=== PATIENT | female | born 1950 | race Caucasian/White ===

== ENCOUNTER 2021-05-04 14:16 | Outpatient (REF) | payer OTHER, SELFPAY | END 2021-05-04 14:17 | disposition home or self-care (01) | LOC: HO.HMGCLDS 14:16 | PROVIDERS: PCP Internal Medicine; Visit Provider Internal Medicine | DX: Z20.822 Contact with and (suspected) exposure to COVID-19 (principal) | CPT/HCPCS: U0003; U0005 ==

== ENCOUNTER 2021-08-04 10:24 | Outpatient (REF) | payer OTHER, SELFPAY ==
[2021-08-04 14:33] LABS: Alanine Aminotransferase 17 U/L (0-31); Albumin Level 4.4 g/dL (3.5-5.0); Alkaline Phosphatase 57 U/L (39-117); Anion Gap 14 (12-20); Aspartate Amino Transferase 18 U/L (5-31); Bilirubin Total 0.3 mg/dL (0.0-1.0); Blood Urea Nitrogen 12 mg/dL (9-16); Calcium 9.6 mg/dL (8.4-10.2); Carbon Dioxide 25 mmol/L (22-29); Chloride 100 mmol/L (96-108); Estimated Glomerular Filt Rate > 60; Glucose Fasting 78 mg/dL (60-99); Potassium 4.8 mmol/L (3.3-5.1); Sodium 134 mmol/L (135-145); Total Protein 7.4 g/dL (6.5-8.0)
== END 2021-08-04 10:25 | disposition home or self-care (01) ==
LOC: HO.HMGCLDS 10:24
PROVIDERS: PCP Internal Medicine; Visit Provider Internal Medicine
DX: Z00.00 Encounter for general adult medical examination without abnormal findings (principal); E78.5 Hyperlipidemia, unspecified; I10 Essential (primary) hypertension; E87.1 Hypo-osmolality and hyponatremia
CPT/HCPCS: 36415; 80048; 80053

== ENCOUNTER 2023-05-01 13:36 | Outpatient (AMB) | payer OTHER, SELFPAY ==
--- NOTE | 2023-05-01 13:39 | A.OFFPC_ITS ---
Vital Signs 05/01/23 13:40 Height 5 ft 3 in Weight 136 lb BMI 24.1 BP 134/64 Blood Pressure Location Lt brachial Position Sitting Pulse 74 Pulse Source Pulse Oximeter Pulse Oximetry (%) 98 Oxygen Delivery Method Room Air Intake Visit Reasons: Hospital follow up Intake Note: Pt is here today for Hospital follow up visit. Allergies rosuvastatin [From Crestor] Allergy (Verified 05/01/23 13:41) joint pain, pain in legs and arms pravastatin Adverse Reaction (Intermediate, Verified 05/01/23 13:41) elbow pain Medication List - Last Reconciled 05/01/23 by Trudy Espinal MD amlodipine-olmesartan 10-40 mg TAKE 1 TABLET BY MOUTH EVERY DAY Cymbalta (duloxetine) 20 mg PO DAILY NS hydralazine 10 mg PO BID metoprolol succinate ER TAKE 1 TABLET BY MOUTH DAILY Tobacco use date assessed: 05/01/23 Dental Screening Dental Screen Date: 05/01/23 Did you have a dental visit in the last 12 months?: Yes Did you have a dental problem in the last 6 months where you did not have access to dental care?: No Was dental information given to patient?: Patient has dentist HPI Hospital follow up HPI Details Pt presents for f/u hospitalization at [facility] for hyponatremia with sodium level of 126 and difficulty with balance. Brain MR/CT were negative. Patient has been on fluid restriction for the last few years for chronic hypon atremia but has been drinking more fluids lately because of the hot weather. Hypertension is controlled on current medications. Patient has been taking Cymbalta for chronic anxiety and neck pain due to cervical radiculopathy. [facility] Medical History (Updated 05/01/23 @ 14:45 by Trudy Espinal MD) Cervical radiculopathy Depression with anxiety History of mammogram HTN (hypertension) Hyperlipidemia Hyponatremia Normal breast exam Surgical History H/O colonoscopy No pertinent past surgical history Family History Father No problems noted. Mother HTN (hypertension) Social History Housing: House Alcohol intake: current Alcohol intake frequency: a few times a week Patient Tobacco Use Status: Never used Tobacco e-Cigarette/Vaping Use: Never Used Current occupational status: employed Cognitive needs: No Hearing needs: No Vision needs: Yes Questionnaire Thrive Questionnaire Date Thrive assessed: 11/07/22 SAPPHIRE-7 AMB Questionnaire SAPPHIRE-7 Date SAPPHIRE - 7 assessed: 11/07/22 Source: Developed by Drs. Nilson Burdick, Brianna Long, Mickey Cee and colleagues, with an educational seth from [employer]. Review of Systems Const All systems reviewed & are unremarkable except as noted in HPI and below Reports no additional complaints Eyes Reports no additional complaints ENT Reports no additional complaints Card Reports no additional complaints Resp Reports no additional complaints GI Reports no additional complaints Reports no additional complaints Physical exam (Primary Care) Vital Signs: Last Vital Signs Pulse 74 05/01/23 13:40 BP 134/64 05/01/23 13:40 Pulse Ox 98 05/01/23 13:40 Oxygen Delivery Method Room Air 05/01/23 13:40 BMI result Body Mass Index 24.1 Tobacco/Smoking Status: Tobacco use Status Tobacco use date assessed 05/01/23 05/01/23 13:44 Patient Tobacco Use Status Never used Tobacco 05/01/23 13:44 e-Cigarette/Vaping Use Never Used 05/01/23 13:44 Thrive Assessment: Date of Thrive Assessment Date Thrive assessed 11/07/22 05/01/23 13:44 Const General: no acute distress HENMT Ears: hearing grossly normal bilaterally Face and sinus: Yes normal facial exam Eyes General: appearance normal, both eyes and all related structures Neck Neck: Yes no lymphadenopathy and Yes supple Resp Effort & Inspection: normal respiratory effort Auscultation: clear to auscultation bilaterally Cardio Rhythm: regular rhythm Heart sounds: S1 normal heart sound present and S2 normal heart sound present GI Inspection: Yes normal to inspection Palpation (GI): Soft to palpation Auscultation: normal bowel sounds Assessment and Plan Assessment & Plan (1) Hyponatremia: Comment: Chronic SIADH Code(s): E87.1 - Hypo-osmolality and hyponatremia Plan: Fluid restriction to 48 oz of fluids a day discussed with the patient. Sodium level will be rechecked in 1 month. Patient will try to taper down Cymbalta (2) HTN (hypertension): Code(s): I10 - Essential (primary) hypertension Plan: Continue current medications (3) Nodule of larynx: Comment: on CT scan Radha 04/17 Code(s): J38.7 - Other diseases of larynx Plan: Referred to ENT to evaluate Orders: Orders Basic Metabolic Panel 1 Month E87.1 - Hypo-osmolality and hyponatremia, I10 - Essential (primary) hypertension Basic Metabolic Panel 2 Months E87.1 - Hypo-osmolality and hyponatremia, I10 - Essential (primary) hypertension Referrals Ear/Nose/Throat Referral J38.7 - Other diseases of larynx Medications: Changed From hydralazine 20 mg (2 x 10 mg) PO BID 360 tabs 3RF I10 - Essential (primary) hypertension To hydralazine 10 mg PO BID I10 - Essential (primary) hypertension Coding Level of Care Code Est Pt Level 4 (40980) Diagnoses Hyponatremia E87.1 HTN (hypertension) I10 Nodule of larynx J38.7
[2023-05-01 13:40] VITALS: BP 134/64; PULSE 74; O2SAT 98; BMI 24.1
== END 2023-05-01 14:46 | disposition home or self-care (01) ==
PROVIDERS: PCP Internal Medicine; Visit Provider Internal Medicine
DX: E87.1 Hypo-osmolality and hyponatremia (principal); I10 Essential (primary) hypertension; J38.7 Other diseases of larynx
CPT/HCPCS: 99214

== ENCOUNTER 2023-06-04 12:34 | Outpatient (AMB) | payer MEDICARE, SELFPAY ==
[2023-06-04 12:39] VITALS: BP 128/66; PULSE 68; O2SAT 100; BMI 24.1
--- NOTE | 2023-06-04 12:39 | MHC.PC.OV ---
Vital Signs 06/04/23 12:39 Height 5 ft 3 in Weight 136 lb BMI 24.1 BP 128/66 Blood Pressure Location Lt brachial Position Sitting Pulse 68 Pulse Source Pulse Oximeter Pulse Oximetry (%) 100 Oxygen Delivery Method Room Air Intake Visit Reasons: discuss medical issues Intake Note: Pt is here today for a follow up visit. Allergies rosuvastatin [From Crestor] Allergy (Verified 05/01/23 13:41) joint pain, pain in legs and arms pravastatin Adverse Reaction (Intermediate, Verified 05/01/23 13:41) elbow pain Medication List - Last Reconciled 06/04/23 by Trudy Espinal MD amlodipine-olmesartan 10-40 mg TAKE 1 TABLET BY MOUTH EVERY DAY Cymbalta (duloxetine) 20 mg PO DAILY NS hydralazine 10 mg PO BID metoprolol succinate ER TAKE 1 TABLET BY MOUTH DAILY Tobacco use date assessed: 05/01/23 HPI discuss medical issues HPI Details Patient presents for the follow-up of hypertension stable on current medications. She has been tapering down Cymbalta. Patient has been followed fluid restriction for [facility] Medical History (Updated 06/04/23 @ 13:12 by Trudy Espinal MD) Normal breast exam Hyponatremia History of mammogram Cervical radiculopathy Depression with anxiety Hyperlipidemia HTN (hypertension) Surgical History H/O colonoscopy No pertinent past surgical history Family History Father No problems noted. Mother HTN (hypertension) Social History Housing: House Alcohol intake: current Alcohol intake frequency: a few times a week Patient Tobacco Use Status: Never used Tobacco e-Cigarette/Vaping Use: Never Used Current occupational status: employed Cognitive needs: No Hearing needs: No Vision needs: Yes Questionnaire Thrive Questionnaire Date Thrive assessed: 11/07/22 SAPPHIRE-7 AMB Questionnaire SAPPHIRE-7 Date SAPPHIRE - 7 assessed: 11/07/22 Source: Developed by Drs. Nilson Burdick, Brianna Long, Mickey Cee and colleagues, with an educational seth from [employer]. Review of Systems Const All systems reviewed & are unremarkable except as noted in HPI and below Reports no additional complaints Eyes Reports no additional complaints ENT Reports no additional complaints Card Reports no additional complaints Resp Reports no additional complaints GI Reports no additional complaints Reports no additional complaints Physical exam (Primary Care) Vital Signs: Last Vital Signs Pulse 68 06/04/23 12:39 BP 128/66 06/04/23 12:39 Pulse Ox 100 06/04/23 12:39 Oxygen Delivery Method Room Air 06/04/23 12:39 BMI result Body Mass Index 24.1 Tobacco/Smoking Status: Tobacco use Status Tobacco use date assessed 05/01/23 06/04/23 12:40 Patient Tobacco Use Status Never used Tobacco 06/04/23 12:40 e-Cigarette/Vaping Use Never Used 06/04/23 12:40 Thrive Assessment: Date of Thrive Assessment Date Thrive assessed 11/07/22 06/04/23 12:40 Const General: no acute distress HENMT Face and sinus: Yes normal facial exam Resp Effort & Inspection: normal respiratory effort Auscultation: clear to auscultation bilaterally Cardio Rhythm: regular rhythm Heart sounds: S1 normal heart sound present and S2 normal heart sound present GI Inspection: Yes normal to inspection Assessment and Plan Assessment & Plan (1) Postmenopausal: Code(s): Z78.0 - Asymptomatic menopausal state Plan: Check DEXA continue vitamin-D supplement (2) Hyperlipidemia: Comment: intolerant to Pravastatin, Crestor, body aches Code(s): E78.5 - Hyperlipidemia, unspecified Plan: Continue low-cholesterol diet (3) HTN (hypertension): Code(s): I10 - Essential (primary) hypertension Plan: Continue current medications (4) Hyponatremia: Comment: Chronic SIADH Code(s): E87.1 - Hypo-osmolality and hyponatremia Plan: Continue fluid restriction, monitor sodium level monthly for the next 3 months. Patient's tapering down Cymbalta Orders: Orders Basic Metabolic Panel 1 Month E78.5 - Hyperlipidemia, unspecified, E87.1 - Hypo-osmolality and hyponatremia, I10 - Essential (primary) hypertension XR DEXA axial skeleton Today Z78.0 - Asymptomatic menopausal state Comprehensive [place]. Panel Fast 3 Months E78.5 - Hyperlipidemia, unspecified, E87.1 - Hypo-osmolality and hyponatremia, I10 - Essential (primary) hypertension Complete Blood Count Auto Diff 3 Months E78.5 - Hyperlipidemia, unspecified, E87.1 - Hypo-osmolality and hyponatremia, I10 - Essential (primary) hypertension Lipid Panel 3 Months E78.5 - Hyperlipidemia, unspecified, E87.1 - Hypo-osmolality and hyponatremia, I10 - Essential (primary) hypertension Basic Metabolic Panel 2 Months E87.1 - Hypo-osmolality and hyponatremia Coding Level of Care Code Est Pt Level 4 (98792) Diagnoses Postmenopausal Z78.0 Hyperlipidemia E78.5 HTN (hypertension) I10 Hyponatremia E87.1
== END 2023-06-04 13:34 | disposition home or self-care (01) ==
PROVIDERS: PCP Internal Medicine; Visit Provider Internal Medicine
DX: Z78.0 Asymptomatic menopausal state (principal); E78.5 Hyperlipidemia, unspecified; I10 Essential (primary) hypertension; E87.1 Hypo-osmolality and hyponatremia
CPT/HCPCS: 99214

== ENCOUNTER 2023-07-23 13:46 | Outpatient (REF) | payer MEDICARE, SELFPAY ==
--- NOTE | ~2023-07-23 | MM_ITS ---
EXAMINATION: BONE DENSITOMETRY CLINICAL INDICATION: Asymptomatic menopausal state. COMPARISON: This is the patient's baseline examination. TECHNIQUE: Using a [employer] Dog DXA System (software version: 13.1) manufactured by [employer], dual-energy x-ray absorptiometry was performed of the lumbar spine and left hip. The images are of good technical quality. Summary results are attached. FINDINGS: AP SPINE L1-L4: BMD 1.020 g/cm2, Z-score 0.5, T-score -1.3, osteopenia. LEFT FEMUR, NECK: BMD 0.925 g/cm2, Z-score 1.1, T-score -0.8, normal. LEFT FEMUR, TOTAL: BMD 1.002 g/cm2, Z-score 1.7, T-score 0.0, normal. IDENTIFIED RISK FACTORS: Menopause. Right oophorectomy. HISTORY OF FRACTURE: None listed. MEDICATIONS: Calcium supplement and/or multivitamin. Vitamin D. MM/XR DEXA axial skeleton IMPRESSION: 1. DIAGNOSIS: Osteopenia based on the lowest T-score value of -1.3 in the lumbar spine applying World Health Organization criteria. 2. 10-YEAR FRACTURE RISK PREDICTION, FRAX: Major osteoporotic fracture (clinical spine, forearm, hip or shoulder) 9.0%. Hip fracture 1.2%. 3. Treatment Recommendations: NOF guidelines recommend consideration for treatment in postmenopausal women and men age 50 and older presenting with the following: -A hip or vertebral (clinical or morphometric) fracture. -T-score less than or equal to -2.5 at the femoral neck or spine after appropriate evaluation to exclude secondary causes. -Low bone mass at the hip or spine and a 10-year fracture probability by FRAX of greater than or equal to 3% for hip fracture or greater than or equal to 20% for major osteoporotic fracture based on the [place] adapted WHO algorithm. 4. Other Recommendations: All treatment decisions require clinical judgment and consideration of individual patient factors, including patient preferences, comorbidities, previous drug use, risk factors not captured in the FRAX model (e.g. frailty, falls, vitamin D deficiency, increased bone turnover, interval significant decline in bone density) and possible under or overestimation of fracture risk by FRAX. Additional medical evaluation for secondary cause of low bone mineral density may be appropriate. FUTURE SCAN RECOMMENDATION: People with diagnosed cases of osteoporosis or at high risk for fracture should have regular bone mineral density tests. For patients eligible for Medicare, routine testing is allowed once every 2 years. The testing frequency can be increased to one year for patients who have rapidly progressing disease, those who are receiving or discontinuing medical therapy to restore bone mass, or have additional risk factors.
== END 2023-07-23 13:47 | disposition home or self-care (01) ==
LOC: HO.MAMMO 13:46
PROVIDERS: PCP Internal Medicine; Visit Provider Internal Medicine
DX: Z13.820 Encounter for screening for osteoporosis (principal); Z78.0 Asymptomatic menopausal state
CPT/HCPCS: 77080

== ENCOUNTER 2023-10-24 12:40 | Outpatient (AMB) | payer MEDICARE, SELFPAY ==
[2023-10-24 13:18] VITALS: BP 128/70; PULSE 68; O2SAT 97; BMI 24.1
--- NOTE | 2023-10-24 13:18 | MHC.PC.OV ---
Vital Signs 10/24/23 13:18 Height 5 ft 3 in Weight 136 lb BMI 24.1 BP 128/70 Blood Pressure Location Lt brachial Position Sitting Pulse 68 Pulse Source Pulse Oximeter Pulse Oximetry (%) 97 Oxygen Delivery Method Room Air Intake Visit Reasons: Labs Follow Up Intake Note: Pt is here today for a follow up visit on labs. Allergies rosuvastatin [From Crestor] Allergy (Verified 10/24/23 13:26) joint pain, pain in legs and arms pravastatin Adverse Reaction (Intermediate, Verified 10/24/23 13:26) elbow pain duloxetine Adverse Reaction (Verified 10/24/23 13:26) stomach upset nausea Medication List - Last Reconciled 10/24/23 by Trudy Espinal MD amlodipine-olmesartan 10-40 mg TAKE 1 TABLET BY MOUTH EVERY DAY Cymbalta (duloxetine) 20 mg PO DAILY NS hydralazine 10 mg PO BID metoprolol succinate ER TAKE 1 TABLET BY MOUTH DAILY Tobacco use date assessed: 10/24/23 Fall risk assessment: No Falls in past year Last assessed Fall Risk: 10/24/23 Dental Screening Dental Screen Date: 10/24/23 Did you have a dental visit in the last 12 months?: Yes Did you have a dental problem in the last 6 months where you did not have access to dental care?: No Was dental information given to patient?: Patient has dentist HPI Labs Follow Up HPI Details Patient presents for the follow-up on hypertension and chronic anxiety stable on current medications. Patient has been following a fluid restriction for chronic hyponatremia with stable sodium level for the last 6 months. Patient is going to [facility] November. [facility] Medical History (Updated 10/24/23 @ 13:59 by Trudy Espinal MD) Depression with anxiety Normal breast exam Hyponatremia History of mammogram Cervical radiculopathy Hyperlipidemia HTN (hypertension) Surgical History H/O colonoscopy No pertinent past surgical history Family History Father No problems noted. Mother HTN (hypertension) Social History Housing: House Alcohol intake: current Alcohol intake frequency: a few times a week Patient Tobacco Use Status: Never used Tobacco e-Cigarette/Vaping Use: Never Used Current occupational status: employed Cognitive needs: No Hearing needs: No Vision needs: Yes Questionnaire PHQ-9 Over the last 2 weeks, how often have you been bothered by any of the following problems? 1. Little interest or pleasure in doing things: not at all 2. Feeling down, depressed, or hopeless: not at all 3. Trouble falling or staying asleep, or sleeping too much: not at all 4. Feeling tired or having little energy: not at all 5. Poor appetite or overeating: not at all 6. Feeling bad about yourself - or that you are a failure or have let yourself or your family down: not at all 7. Trouble concentrating on things, such as reading the newspaper or watching television: not at all 8. Moving or speaking so slowly that other people could have noticed. Or the opposite - being so fidgety or restless that you have been moving around a lot more than usual: not at all 9. Thoughts that you would be better off or of hurting yourself in some way: not at all Total score: 0 Depression Screening Interpretation: Negative Depression Screening Done: Yes Source: Developed by Drs. Nilson Burdick, Brianna Long, Mickey Cee and colleagues, with an educational seth from [employer]. Thrive Questionnaire Date Thrive assessed: 10/24/23 I am a: Patient What is your living situation today?: I have a steady place to live Within the past 12 months, did the food you bought not last and you didn't have the money to get more?: Never true Within the past 12 months, did you worry whether your food would run out before you got money to buy more?: Never true Do you have trouble paying for medicines?: No Do you have trouble getting transportation to medical appointments?: No Do you have trouble paying your heating and electricity bill?: No Do you have trouble taking care of your child, family member or friend?: No Do you have trouble with day-to-day activities such as bathing, preparing meals, shopping, managing finances, etc.?: No Are you currently unemployed and looking for a job?: No Are you interested in more education?: No Please select the resources that you would like help with: None Currently or been in a relationship where the following occur: no concerns reported THRIVE Score: 0 AUDIT C Alcohol Use Questionnaire (AUDIT-C) 1. How often do you have a drink containing alcohol?: 2-3 times a week 2. How many drinks containing alcohol do you have on a typical day when you are drinking?: 1 or 2 3. How often do you have six or more drinks on one occasion?: Never Total Score: 3 SAPPHIRE-7 AMB Questionnaire SAPPHIRE-7 Date SAPPHIRE - 7 assessed: 10/24/23 Feeling nervous, anxious, or on edge: 1 = Several days Not being able to stop or control worryin = Several days Worrying too much about different things: 1 = Several days Trouble relaxin = Several days Being so restless that it is hard to sit still: 0 = Not at all Becoming easily annoyed or irritable: 0 = Not at all Feeling afraid as if something awful might happen: 1 = Several days Total SAPPHIRE-7 score (0-4 normal; 5-9 mild; 10-14 moderate; 15-21 severe): 5 Source: Developed by Drs. Nilson Burdick, Brianna Long, Mickey Cee and colleagues, with an educational seth from [employer]. Review of Systems Const All systems reviewed & are unremarkable except as noted in HPI and below Reports no additional complaints Eyes Reports no additional complaints ENT Reports no additional complaints Card Reports no additional complaints Resp Reports no additional complaints GI Reports no additional complaints Reports no additional complaints Physical exam (Primary Care) Vital Signs: Last Vital Signs Pulse 68 10/24/23 13:18 BP 128/70 10/24/23 13:18 Pulse Ox 97 10/24/23 13:18 Oxygen Delivery Method Room Air 10/24/23 13:18 BMI result Body Mass Index 24.1 Tobacco/Smoking Status: Tobacco use Status Tobacco use date assessed 10/24/23 10/24/23 13:27 Patient Tobacco Use Status Never used Tobacco 10/24/23 13:27 e-Cigarette/Vaping Use Never Used 10/24/23 13:18 PHQ-9: PHQ-9 Score PHQ-9: Total score 0 10/24/23 13:29 Depression Screening Interpretation: Negative Thrive Assessment: Date of Thrive Assessment Date Thrive assessed 10/24/23 10/24/23 13:29 Currently or been in a relationship where the following occur: no concerns reported Const General: no acute distress HENMT Head: Yes normal to inspection Ears: hearing grossly normal bilaterally Neck Neck: Yes no lymphadenopathy and Yes supple Resp Effort & Inspection: normal respiratory effort Auscultation: clear to auscultation bilaterally Cardio Rhythm: regular rhythm Heart sounds: S1 normal heart sound present and S2 normal heart sound present GI Inspection: Yes normal to inspection Palpation (GI): Soft to palpation Percussion: Yes normal to percussion Auscultation: normal bowel sounds Assessment and Plan Assessment & Plan (1) Annual physical exam: Code(s): Z00.00 - Encounter for general adult medical examination without abnormal findings (2) Hyperlipidemia: Comment: intolerant to Pravastatin, Crestor, body aches Code(s): E78.5 - Hyperlipidemia, unspecified Plan: CONTINUE LOW-CHOLESTEROL DIET (3) HTN (hypertension): Code(s): I10 - Essential (primary) hypertension Plan: Continue current medications (4) Hyponatremia: Comment: Chronic SIADH Code(s): E87.1 - Hypo-osmolality and hyponatremia Plan: Continue fluid restriction and recheck sodium level in 3 and 6 months (5) Depression with anxiety: Code(s): F41.8 - Other specified anxiety disorders Plan: Continue Cymbalta follow-up in 6 months (6) Osteopenia: Comment: DEXA 09/18 Code(s): M85.80 - Other specified disorders of bone density and structure, unspecified site Plan: Taking vitamin-D supplement and weight-bearing exercises discussed with the patient Orders: Orders Basic Metabolic Panel 3 Months E78.5 - Hyperlipidemia, unspecified, E87.1 - Hypo-osmolality and hyponatremia, I10 - Essential (primary) hypertension, Z00.00 - Encounter for general adult medical examination without abnormal findings Comprehensive [place]. Panel Fast 6 Months E78.5 - Hyperlipidemia, unspecified, E87.1 - Hypo-osmolality and hyponatremia, I10 - Essential (primary) hypertension, Z00.00 - Encounter for general adult medical examination without abnormal findings Vitamin D 25-OH Total 6 Months E78.5 - Hyperlipidemia, unspecified, E87.1 - Hypo-osmolality and hyponatremia, I10 - Essential (primary) hypertension, Z00.00 - Encounter for general adult medical examination without abnormal findings Lipid Panel 6 Months E78.5 - Hyperlipidemia, unspecified, E87.1 - Hypo-osmolality and hyponatremia, I10 - Essential (primary) hypertension, Z00.00 - Encounter for general adult medical examination without abnormal findings Coding Level of Care Code Est Pt Level 4 (16675) Diagnoses Annual physical exam Z00.00 Hyperlipidemia E78.5 HTN (hypertension) I10 Hyponatremia E87.1 Depression with anxiety F41.8 Osteopenia M85.80
== END 2023-10-24 13:45 | disposition home or self-care (01) ==
PROVIDERS: PCP Internal Medicine; Visit Provider Internal Medicine
DX: E78.5 Hyperlipidemia, unspecified (principal); I10 Essential (primary) hypertension; E87.1 Hypo-osmolality and hyponatremia; F41.8 Other specified anxiety disorders; M85.80 Other specified disorders of bone density and structure, unspecified site
CPT/HCPCS: 99214

== ENCOUNTER 2024-03-30 11:10 | Outpatient (AMB) | payer MEDICARE, SELFPAY ==
[2024-03-30 11:11] VITALS: BP 125/78; PULSE 67; O2SAT 97; BMI 24.4
--- NOTE | 2024-03-30 11:11 | A.OFFPC_ITS ---
Vital Signs 03/30/24 11:11 03/30/24 12:45 Height 5 ft 3 in Weight 138 lb BMI 24.4 BP 125/78 Blood Pressure Location Lt brachial Position Sitting Pulse 67 Pulse Source Pulse Oximeter Pulse Oximetry (%) 97 Oxygen Delivery Method Room Air Comment Provoider will take bp Intake Visit Reasons: 6M Labs F/U Intake Note: Patient is here today for her 6 month follow up . Allergies rosuvastatin [From Crestor] Allergy (Verified 03/30/24 11:11) joint pain, pain in legs and arms pravastatin Adverse Reaction (Intermediate, Verified 03/30/24 11:11) elbow pain duloxetine Adverse Reaction (Verified 03/30/24 11:11) stomach upset nausea Medication List - Last Reconciled 03/30/24 by Trudy Espinal MD amlodipine-olmesartan 10-40 mg TAKE 1 TABLET BY MOUTH EVERY DAY Cymbalta (duloxetine) 20 mg PO DAILY NS hydralazine 20 mg (2 x 10 mg) PO BID metoprolol succinate ER TAKE 1 TABLET BY MOUTH DAILY Tobacco use date assessed: 03/30/24 Fall risk assessment: No Falls in past year Last assessed Fall Risk: 03/30/24 Dental Screening Dental Screen Date: 03/30/24 Did you have a dental visit in the last 12 months?: Yes Did you have a dental problem in the last 6 months where you did not have access to dental care?: No Was dental information given to patient?: Patient has dentist HPI 6M Labs F/U HPI Details Pt presents for HTN stable on meds. Chronic anxiety stable on Cymbalta [facility] Medical History Depression with anxiety Normal breast exam Hyponatremia History of mammogram Cervical radiculopathy Hyperlipidemia HTN (hypertension) Surgical History H/O colonoscopy No pertinent past surgical history Family History Father No problems noted. Mother HTN (hypertension) Social History Housing: House Alcohol intake: current Alcohol intake frequency: a few times a week Patient Tobacco Use Status: Never used Tobacco e-Cigarette/Vaping Use: Never Used service: No Current occupational status: employed Cognitive needs: No Hearing needs: No Vision needs: Yes Questionnaire Thrive Questionnaire Date Thrive assessed: 03/30/24 I am a: Patient What is your living situation today?: I have a steady place to live Within the past 12 months, did the food you bought not last and you didn't have the money to get more?: Never true Within the past 12 months, did you worry whether your food would run out before you got money to buy more?: Never true Do you have trouble paying for medicines?: No Do you have trouble getting transportation to medical appointments?: No Do you have trouble paying your heating and electricity bill?: No Do you have trouble with day-to-day activities such as bathing, preparing meals, shopping, managing finances, etc.?: No Are you currently unemployed and looking for a job?: No Are you interested in more education?: No Currently or been in a relationship where the following occur: No concerns reported THRIVE Score: 0 AUDIT C Alcohol Use Questionnaire (AUDIT-C) 1. How often do you have a drink containing alcohol?: 2-3 times a week 2. How many drinks containing alcohol do you have on a typical day when you are drinking?: 1 or 2 3. How often do you have six or more drinks on one occasion?: Never Total Score: 3 Score Reviewed/Action Taken: Yes SAPPHIRE-7 AMB Questionnaire SAPPHIRE-7 Date SAPPHIRE - 7 assessed: 10/24/23 Source: Developed by Drs. Nilson Burdick, Brianna Long, Mickey Cee and colleagues, with an educational seth from [employer]. Review of Systems Const All systems reviewed & are unremarkable except as noted in HPI and below Eyes Reports no additional complaints ENT Reports no additional complaints Card Reports no additional complaints Resp Reports no additional complaints GI Reports no additional complaints Physical exam (Primary Care) Vital Signs: Last Vital Signs Pulse 67 03/30/24 11:11 Pulse Ox 97 03/30/24 11:11 Oxygen Delivery Method Room Air 03/30/24 11:11 BMI result Body Mass Index 24.4 Tobacco/Smoking Status: Tobacco use Status Tobacco use date assessed 03/30/24 03/30/24 11:12 Patient Tobacco Use Status Never used Tobacco 03/30/24 11:12 e-Cigarette/Vaping Use Never Used 03/30/24 11:12 Thrive Assessment: Date of Thrive Assessment Date Thrive assessed 03/30/24 03/30/24 11:12 Currently or been in a relationship where the following occur: No concerns reported Const General: no acute distress HENMT Face and sinus: Yes normal facial exam Eyes General: appearance normal, both eyes and all related structures Resp Effort & Inspection: normal respiratory effort Auscultation: clear to auscultation bilaterally Cardio Rhythm: regular rhythm Heart sounds: S1 normal heart sound present and S2 normal heart sound present GI Inspection: Yes normal to inspection Palpation (GI): Soft to palpation Percussion: Yes normal to percussion Assessment and Plan Assessment & Plan (1) HTN (hypertension): Code(s): I10 - Essential (primary) hypertension Plan: Continue current medications (2) Hyperlipidemia: Comment: intolerant to Pravastatin, Crestor, body aches Code(s): E78.5 - Hyperlipidemia, unspecified Plan: Continue low-cholesterol diet (3) Hyponatremia: Comment: 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, on water restriction Code(s): E87.1 - Hypo-osmolality and hyponatremia Plan: Check basic metabolic panel serum and urine osmolality continue fluid restriction return in 6 months with a fasting labs Orders: Orders Complete Blood Count Auto Diff 6 Months E78.5 - Hyperlipidemia, unspecified, E87.1 - Hypo-osmolality and hyponatremia, I10 - Essential (primary) hypertension TSH reflex Free T4 6 Months E78.5 - Hyperlipidemia, unspecified, E87.1 - Hypo-osmolality and hyponatremia, I10 - Essential (primary) hypertension Osmolality Urine Today E87.1 - Hypo-osmolality and hyponatremia Sodium Urine Random Today E87.1 - Hypo-osmolality and hyponatremia TSH reflex Free T4 Today E87.1 - Hypo-osmolality and hyponatremia Comprehensive [place]. Panel Fast 6 Months E78.5 - Hyperlipidemia, unspecified, E87.1 - Hypo-osmolality and hyponatremia, I10 - Essential (primary) hypertension Lipid Panel 6 Months E78.5 - Hyperlipidemia, unspecified, E87.1 - Hypo- osmolality and hyponatremia, I10 - Essential (primary) hypertension Vitamin D 25-OH Total 6 Months E78.5 - Hyperlipidemia, unspecified, E87.1 - Hyp o-osmolality and hyponatremia, I10 - Essential (primary) hypertension Basic Metabolic Panel Today E87.1 - Hypo-osmolality and hyponatremia Osmolality, Serum Today E87.1 - Hypo-osmolality and hyponatremia Coding Level of Care Code Est Pt Level 4 (19341) Diagnoses HTN (hypertension) I10 Hyperlipidemia E78.5 Hyponatremia E87.1
--- OUTSIDE RECORDS SUMMARY | 2024-03-30 11:11 | XMS_ITS | Continuity of Care Document ---
Author Organization [facility] Address [address] [facility] [place] [address]- Care Team Providers Care Wildland Fire Operations Specialist Name Role Phone Trudy Espinal MD Primary Care Physician Encounter 02/05/20 - 02/12/20 [facility] [address], [facility] [address] [place] [address]- [phone] Attending Physician: Trudy Espinal MD Admitting Physician: Trudy Espinal MD Referring Physician: Trudy Espinal MD Allergies, Adverse Reactions, Alerts Substance Reaction Severity Status NKA Active Medications Cymbalta 30 mg oral enteric coated capsule 1 capsule = 30 mg, By Mouth, Daily, 0 Refills, Maintenance, 08/08/15 2:37:12 Start Date: 08/08/15 Status: Ordered Fish Oil oral capsule 1, tablet, By Mouth, Daily, Refills 0, Tot. Refills 0, 11/15/08 13:35:27 Start Date: 11/15/08 Status: Ordered Lotrel 10 mg-40 mg oral capsule 1 capsule, By Mouth, Daily, # 30 capsule, 0 Refills, Maintenance, 08/08/15 2:36:23, Capsule Start Date: 08/08/15 Status: Ordered metoprolol 50 mg oral tablet, extended release 1 tablet = 50 mg, By Mouth, Daily, # 30 tablet, 0 Refills, Maintenance, 08/09/15 8:45:38, XL Tablet Start Date: 08/09/15 Stop Date: 09/08/15 Status: Ordered multivitamin Therapeutic Multiple Vitamins oral tablet 1, tablet, By Mouth, Daily, Refills 0, Tot. Refills 0, 11/15/08 13:35:09 Start Date: 11/15/08 Status: Ordered simvastatin 10 mg oral tablet 1 tablet = 10 mg, By Mouth, Daily at bedtime, # 30 tablet, 0 Refills, Maintenance, 08/08/15 2:36:51, Tablet Start Date: 08/08/15 Status: Ordered
--- OUTSIDE RECORDS SUMMARY | 2024-03-30 11:11 | XMS_ITS | Continuity of Care Document ---
Author Organization [facility] Address [address] [facility] [place] [address]- Care Team Providers Care Dish Washer Name Role Phone Trudy Espinal MD Primary Care Physician Encounter 02/27/23 - 03/06/23 [facility] [address], [facility] [address] [place] [address]- Attending Physician: Trudy Espinal MD Admitting Physician: Trudy Espinal MD Referring Physician: Trudy Espinal MD Allergies, Adverse Reactions, Alerts No Known Allergies Medications Cymbalta 30 mg oral enteric coated [...] 2:36:51, Tablet Start Date: 08/08/15 Status: Ordered Results Radiology Reports * Exam Date Time Procedure Performing Provider Status 02/27/23 11:22 AM MM Digital Mammo Screening Ynes Diez; Yash (Verified) Notes: (MM Digital Mammo Screening) Reason For Exam: Z12.31 ROUTINE SCREENING RESULT: MM Digital Mammo Screening PROCEDURE: MM Digital Mammo Screening INDICATION: Screening. No known palpable abnormalities. COMPARISON: 02/24/2022 TECHNIQUE: Full-field digital CC and MLO views of both breasts were obtained. In addition, 3D tomosynthesis images of both breasts were acquired. Computer-aided detection (CAD) was utilized in the interpretation of this study. DENSITY: The breast tissue contains scattered areas of fibroglandular density. FINDINGS: On the right cc view there is a 3 mm round area of asymmetric markings seen anteriorly and just lateral to the midline. There is no correlate on the oblique view. Because this was not clearly present on old films further evaluation will be done. There are scattered benign appearing calcifications bilaterally. IMPRESSION: A 3 mm round area of asymmetric markings seen anteriorly and laterally on the right cc view. I would evaluate this as follows: I would obtain a 3-D spot compression view in the CC position. If the abnormality persists I would do a 3-D lateral view and an ultrasound. RECOMMENDATION: Diagnostic 3D tomosynthesis of the right breast with scheduled ultrasound BI-RADS: 0 (Incomplete - Need Additional Imaging Evaluation. Lay letter mailed to patient WSN: [id number] Ordering Physician: Trudy Espinal Dictated By: Jaden Chandler MD Dictated Date/Time: 02/27/23 1:21 pm Reviewed By: Jaden Chandler MD Signed By: Jaden Chandler MD Signed Date/Time: 02/27/23 1:21 pm Transcribed By: JORGITO Electorate Officer Date/Time: 02/27/23 1:12 pm Birads: Patient Care team information Care Team Personnel Name: Trudy Espinal MD Position: S Physician - Primary Care Member Role: PCP Address: Address: [address] [place] [address]- Care Team Related Persons Name: LISHA CIFUENTES Address: home [address] [place] [address] Name: CATHERINE CIFUENTES Address: home [address] [place] [address] Name: SILVESTRE GODWIN Address: [place] [address]
--- OUTSIDE RECORDS SUMMARY | 2024-03-30 11:11 | XMS_ITS | Continuity of Care Document ---
Author Organization [facility] ter Address [address] [place] [address]- Care Team Providers Care Metal Wire Coating Operator Name Role Phone Trudy Espinal MD Primary Care Physician [phone] Encounter [facility] Date(s): 03/21/22 - 03/21/[address] [address] Attending Physician: Trudy Espinal MD Allergies, Adverse Reactions, [...]
--- OUTSIDE RECORDS SUMMARY | 2024-03-30 11:11 | XMS_ITS | Continuity of Care Document ---
Author Organization [facility] Address [address] [facility], [address] [place] [address]- Care Team Providers Care Shear Tender Name Role Phone Trudy Espinal MD Primary Care Physician Encounter 02/07/21 - 02/14/21 [facility] [address], [address] [place] [address]- Attending Physician: Trudy Espinal MD Admitting Physician: [...]
--- OUTSIDE RECORDS SUMMARY | 2024-03-30 11:11 | XMS_ITS | Continuity of Care Document ---
Author Organization [facility] Address [address] [facility], [address] [place] [address]- Care Team Providers Care Line Manager Name Role Phone Trudy Espinal MD Primary Care Physician Encounter 02/24/22 - 03/03/22 [facility] [address] [facility], [address] [place] [address]- Attending Physician: Trudy Espinal MD Admitting Physician: [...]
== END 2024-03-30 12:33 | disposition home or self-care (01) ==
LOC: HO.HMGC 11:10
PROVIDERS: PCP Internal Medicine; Visit Provider Internal Medicine
DX: I10 Essential (primary) hypertension (principal); E78.5 Hyperlipidemia, unspecified; E87.1 Hypo-osmolality and hyponatremia
CPT/HCPCS: 99214

== ENCOUNTER 2024-03-30 12:02 | Outpatient (REF) | payer MEDICARE, SELFPAY ==
[2024-03-30 13:58] LABS: Anion Gap 12 (12-20); Blood Urea Nitrogen 11 mg/dL (9-16); Calcium 9.8 mg/dL (8.4-10.2); Carbon Dioxide 26 mmol/L (22-29); Chloride 95 mmol/L (96-108); Estimated Glomerular Filt Rate > 60; Glucose Random 95 mg/dL (60-115); Potassium 4.3 mmol/L (3.3-5.1); Sodium 129 mmol/L (135-145)
[2024-03-30 14:01] LABS: Osmolality Urine 274 mosm/kg (373-1093); Osmolality, Serum 241 mosm/kg (281-305)
[2024-03-30 14:04] LABS: TSH reflex Free T4 1.56 uIU/mL (0.32-4.0)
== END 2024-03-30 12:03 | disposition home or self-care (01) ==
LOC: HO.HMGCLDS 12:02
PROVIDERS: PCP Internal Medicine; Visit Provider Internal Medicine
DX: E87.1 Hypo-osmolality and hyponatremia (principal)
CPT/HCPCS: 36415; 80048; 83930; 83935; 84300; 84443

== ENCOUNTER 2024-05-07 14:37 | Outpatient (REF) | payer MEDICARE, SELFPAY ==
[2024-05-07 16:37] LABS: Anion Gap 14 (12-20); Blood Urea Nitrogen 10 mg/dL (9-16); Carbon Dioxide 24 mmol/L (22-29); Chloride 98 mmol/L (96-108); Estimated Glomerular Filt Rate > 60; Glucose Random 99 mg/dL (60-115); Potassium 4.2 mmol/L (3.3-5.1); Sodium 132 mmol/L (135-145)
== END 2024-05-07 14:38 | disposition home or self-care (01) ==
LOC: HO.HMGCLDS 14:37
PROVIDERS: PCP Internal Medicine; Visit Provider Internal Medicine
DX: E87.1 Hypo-osmolality and hyponatremia (principal)
CPT/HCPCS: 36415; 80048

== ENCOUNTER 2024-09-29 12:08 | Outpatient (AMB) | payer MEDICARE, SELFPAY ==
[2024-09-29 12:10] VITALS: BP 128/78; PULSE 75; TEMP 37.2; O2SAT 99; BMI 24.6
--- NOTE | 2024-09-29 12:10 | MHC.PC.OV ---
Vital Signs 09/29/24 12:10 Height 5 ft 3 in Weight 139 lb BMI 24.6 BP 128/78 Blood Pressure Location Lt brachial Position Sitting Pulse 75 Pulse Source Pulse Oximeter Temp 98.9 F Temp Source Oral Pulse Oximetry (%) 99 Oxygen Delivery Method Room Air Intake Visit Reasons: Annual PE Intake Note: Pt is here today for PE. Allergies rosuvastatin [From Crestor] Allergy (Verified 09/29/24 12:11) joint pain, pain in legs and arms pravastatin Adverse Reaction (Intermediate, Verified 09/29/24 12:11) elbow pain duloxetine Adverse Reaction (Verified 09/29/24 12:11) stomach upset nausea Medication List - Last Reconciled 09/29/24 by Trudy Espinal MD amlodipine-olmesartan 10-40 mg TAKE 1 TABLET BY MOUTH EVERY DAY Cymbalta (duloxetine) 20 mg PO DAILY NS hydralazine 20 mg (2 x 10 mg) PO BID metoprolol succinate ER TAKE 1 TABLET BY MOUTH DAILY Tobacco use date assessed: 09/29/24 Fall risk assessment: No Falls in past year Last assessed Fall Risk: 09/29/24 Dental Screening Dental Screen Date: 09/29/24 Did you have a dental visit in the last 12 months?: Yes Did you have a dental problem in the last 6 months where you did not have access to dental care?: No Was dental information given to patient?: Patient has dentist HPI Annual PE HPI Details Pt presents for PE. PFS Medical History Depression with anxiety Normal breast exam Hyponatremia History of mammogram Cervical radiculopathy Hyperlipidemia HTN (hypertension) Surgical History H/O colonoscopy No pertinent past surgical history Family History Father No problems noted. Mother HTN (hypertension) Social History Housing: House Alcohol intake: current Alcohol intake frequency: a few times a week Patient Tobacco Use Status: Never used Tobacco e-Cigarette/Vaping Use: Never Used service: No Current occupational status: employed Cognitive needs: No Hearing needs: No Vision needs: Yes Questionnaire PHQ-9 Over the last 2 weeks, how often have you been bothered by any of the following problems? 1. Little interest or pleasure in doing things: not at all 2. Feeling down, depressed, or hopeless: not at all 3. Trouble falling or staying asleep, or sleeping too much: not at all 4. Feeling tired or having little energy: not at all 5. Poor appetite or overeating: not at all 6. Feeling bad about yourself - or that you are a failure or have let yourself or your family down: not at all 7. Trouble concentrating on things, such as reading the newspaper or watching television: not at all 8. Moving or speaking so slowly that other people could have noticed. Or the opposite - being so fidgety or restless that you have been moving around a lot more than usual: not at all 9. Thoughts that you would be better off or of hurting yourself in some way: not at all Total score: 0 Depression Screening Interpretation: Negative Depression Screening Done: Yes 77874 - PHQ-9 Billing: Yes Source: Developed by Drs. Nilson Burdick, Brianna Long, Mickey Cee and colleagues, with an educational seth from [employer]. Thrive Questionnaire Date Thrive assessed: 09/29/24 I am a: Patient What is your living situation today?: I have a steady place to live Within the past 12 months, did the food you bought not last and you didn't have the money to get more?: Never true Within the past 12 months, did you worry whether your food would run out before you got money to buy more?: Never true Do you have trouble paying for medicines?: No Do you have trouble getting transportation to medical appointments?: No Do you have trouble paying your heating and electricity bill?: No Do you have trouble taking care of your child, family member or friend?: No Do you have trouble with day-to-day activities such as bathing, preparing meals, shopping, managing finances, etc.?: No Are you currently unemployed and looking for a job?: No Are you interested in more education?: No Please select the resources that you would like help with: None THRIVE Score: 0 AUDIT C Alcohol Use Questionnaire (AUDIT-C) 1. How often do you have a drink containing alcohol?: 2-3 times a week 2. How many drinks containing alcohol do you have on a typical day when you are drinking?: 1 or 2 3. How often do you have six or more drinks on one occasion?: Never Total Score: 3 Score Reviewed/Action Taken: Yes SAPPHIRE-7 AMB Questionnaire SAPPHIRE-7 Date SAPPHIRE - 7 assessed: 09/29/24 Feeling nervous, anxious, or on edge: 1 = Several days Not being able to stop or control worryin = Not at all Worrying too much about different things: 1 = Several days Trouble relaxin = Not at all Being so restless that it is hard to sit still: 0 = Not at all Becoming easily annoyed or irritable: 0 = Not at all Feeling afraid as if something awful might happen: 0 = Not at all Total SAPPHIRE-7 score (0-4 normal; 5-9 mild; 10-14 moderate; 15-21 severe): 2 Source: Developed by Drs. Nilson Burdick, Brianna Long, Mickey Cee and colleagues, with an educational seth from [employer]. Review of Systems Const All systems reviewed & are unremarkable except as noted in HPI and below Reports no additional complaints Eyes Reports no additional complaints ENT Reports no additional complaints Card Reports no additional complaints Resp Reports no additional complaints GI Reports no additional complaints Reports no additional complaints Musc Reports no additional complaints Physical exam (Primary Care) Vital Signs: Last Vital Signs Temp 98.9 F 09/29/24 12:10 Pulse 75 09/29/24 12:10 BP 128/78 09/29/24 12:10 Pulse Ox 99 09/29/24 12:10 Oxygen Delivery Method Room Air 09/29/24 12:10 BMI result Body Mass Index 24.6 Tobacco/Smoking Status: Tobacco use Status Tobacco use date assessed 09/29/24 09/29/24 12:25 Patient Tobacco Use Status Never used Tobacco 09/29/24 12:25 e-Cigarette/Vaping Use Never Used 09/29/24 12:20 PHQ-9: PHQ-9 Score PHQ-9: Total score 0 09/29/24 13:06 Depression Screening Interpretation: Negative Thrive Assessment: Date of Thrive Assessment Date Thrive assessed 09/29/24 09/29/24 12:20 Const General: no acute distress HENIA Head: Yes normal to inspection Ears: hearing grossly normal bilaterally General nose exam: Normal external nose present Face and sinus: Yes normal facial exam Throat: Yes posterior oropharynx normal Eyes General: appearance normal, both eyes and all related structures Neck Neck: Yes no lymphadenopathy and Yes supple Resp Effort & Inspection: normal respiratory effort Auscultation: clear to auscultation bilaterally Cardio Rhythm: regular rhythm Heart sounds: S1 normal heart sound present and S2 normal heart sound present GI Inspection: Yes normal to inspection Palpation (GI): Soft to palpation Percussion: Yes normal to percussion Auscultation: normal bowel sounds Coding Level of Care Code Est Pt Prev Care >65y(26970) Diagnoses HTN (hypertension) I10 Hyperlipidemia E78.5 Hyponatremia E87.1 Annual physical exam Z00.00 Additional Codes PHQ-9 - 87017 - PHQ-9 Billing: Yes ([id number]) Assessment & Plan Assessment & Plan (1) HTN (hypertension): Code(s): I10 - Essential (primary) hypertension Category: Medical Plan: Continue current medications (2) Hyperlipidemia: Comment: intolerant to Pravastatin, Crestor, body aches Code(s): E78.5 - Hyperlipidemia, unspecified Category: Medical Plan: Continue low-cholesterol diet (3) Hyponatremia: Comment: 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 She is up-to-date with the mammogram colonoscopy Orders: Orders Complete Blood Count Auto Diff 6 Months E78.5 - Hyperlipidemia, unspecified, E87.1 - Hypo-osmolality and hyponatremia, I10 - Essential (primary) hypertension Lipid Panel 6 Months E78.5 - Hyperlipidemia, unspecified, I10 - Essential (primary) hypertension Basic Metabolic Panel 3 Months E87.1 - Hypo-osmolality and hyponatremia Comprehensive [place]. Panel Fast 6 Months E78.5 - Hyperlipidemia, unspecified, I10 - Essential (primary) hypertension Medications: Changed From Cymbalta (duloxetine) no substitution 20 mg PO DAILY 90 caps 3RF NS To Cymbalta (duloxetine) 20 mg PO DAILY 90 caps 3RF NS Refilled metoprolol succinate ER TAKE 1 TABLET BY MOUTH DAILY 90 tabs 3RF
--- OUTSIDE RECORDS SUMMARY | 2024-09-29 12:54 | XMS_ITS | Data Portability ---
Author Organization [place] - [facility], Allergy Address [address] [address] Care Team Providers Care Oyster Buyer Name Role Phone ABDIAS EDMONDS Primary Care Provider Assessment No assessment recorded. Plan of Treatment Reminders Order Date Submit Date Provider Last Modified By Organization Details Last Modified Time Details Appointments None record ed. Lab None record ed. Referral None record ed. Procedures None record ed. Surgeries None record ed. Imaging None record ed. Medication Orders None record ed. Patient TargetsNo targets recorded. Patient InstructionsNo instructions recorded. Reason for Referral None Reported. Problems Name Problem SNOMED Code Status Onset Date Resolution Date Notes Provider Name and Address Organization Details Recorded Time Sensorine ural hearing loss of bilateral ears 351709993 Active 2019 Sensorine ural hearing loss, bilateral ; Note: Date Diagnosed : 01/28/2020 2:30 PM (H90.3) Not Available [facility] 4 02:48:02 Impacted cerumen in right ear [id number] 66109 Active 2019 Impacted cerumen, right ear; Note: Date Diagnosed : 01/28/2020 3:00 PM (H61.21) Not Available [facility] 4 02:48:01 Cyst of pharynx [id number] Active 2023 MADDI RAMIRES MD [address] [facility], [facility] [address] , [place] - [facility] 4 15:02:21 Problem Notes None recorded. Procedures Surgical History Date Name Laterality Status Provider Name and Address Organization Details Recorded Time 07/22/20 24 Comp Audio with Tymps (23676 & 14469) completed Kim Seth [place] - [facility] 07/22/2024 14:00:58 05/22/20 24 Fiberoptic Laryngoscopy (Comprehensive) completed MADDI RAMIRES MD [address] [place] [address], [place], [address], [place] - [facility] 05/31/2024 15:00:27 Imaging Results None recorded. Procedure Notes None recorded. Medical Equipment None Reported. Allergies No known drug allergies Medications Name Sig Start Date Stop Date Status Note LastModified by Organization Details LastModified Time desonide 0.05 % topical cream APPLY TWICE DAILY TO ECZEMA UP TO 2 WEEKS/MO NTH NEEDED. 05/22 completed Not Available Not Available Not Available hydralazi ne 10 mg tablet TAKE 2 TABLETS BY MOUTH TWICE A DAY active Not Available Not Available No t Available metoprolo l succinate ER 50 mg tablet,ex tended release 24 hr TAKE 1 TABLET BY MOUTH EVERY DAY active Not Available Not Available No t Available meloxicam 7.5 mg tablet TAKE 1 TABLET BY MOUTH EVERY DAY 05/22 completed Not Available Not Available Not Available pravastat in 10 mg tablet 2019 active Medicati on ID: [id number] D uration Value: 90 Brand Name: pravasta tin Send Method: E-Prescr ibed Sub s Allowed: subs OK Speci al Instruct ion: TAKE 1 TABLET BY MOUTH EVERY DAY Medi cationGe nericNam e: pravasta tin Not Available Not Available Not Available fluocinon gary 0.05 % topical cream APPLY SPARINGL Y TO AFFECTED AREA 3 TIMES A DAY 05/22 completed Not Available Not Available Not Available Cymbalta 20 mg capsule,d elayed release TAKE 1 CAPSULE BY MOUTH EVERY DAY active Not Available Not Available No t Available Vitamin D3 active Medicati on ID: [id number] B rand Name: Vitamin D3 Send Method: E-Prescr ibed Sub s Allowed: subs OK Medic ationGen ericName : Vitamin D3 Not Available Not Available Not Available amlodipin e 10 mg-olmesa rtan 40 mg tablet TAKE 1 TABLET BY MOUTH EVERY DAY active Not Available Not Available No t Available Paxlovid 300 mg (150 mg x 2)-100 mg tablets in a dose pack TAKE 2 TABLETS (NIRMATR ALLISON) AND TAKE 1 TABLET (RITONAV IR) BY MOUTH TWICE A DAY FOR 5 DAYS 05/22 completed Not Available Not Available Not Available Vitals Date Recorded Body height Body mass index (BMI) Body weight Provider Name and Address Organization Details Last Updated DateTime 05/22/2024 160.02 cm 23.9 kg/m2 48635.97 g Deann Horvath [place] - [facility] 05/22/2024 13:53:12 Social History None recorded. Functional Status None recorded. Mental Status None recorded. Family History Nothing Reported. Medical History Condition Response Hyperlipidemia Y Hypertension Y Gynecological HistoryNo gynecological history recorded. Obstetrics History GPAL:G 0 P 0 0 0 0 Past Encounters Encounter ID Performer Location Encounter Start Date Encounter Closed Date Diagnosis/Indication Diagnosis SNOMED-CT Code Diagnosis ICD10 Code Diagnosis Note [id number] MADDI RAMIRES MD [facility] [address] [address] 05/22/2024 13:42:58 05/22/2024 14:09:10 Cyst of pharynx [id number] J39.2 No changes in health since her last visit. We reviewed results and her MRI imaging showing small cysts at the tongue base suggestive of mucous retention cyst, small elongated cyst in the central more inferior tongue base which could represent a small thyrogloss al duct cyst, and 6 mm right vallecular cyst. She denies any sore throat, dysphagia, otalgia. Repeat flexible laryngosco py today did not show any change in exam. No worrisome physical exam findings. I do not palpate any mass in her neck.I would recommend repeat laryngosco py for any change in symptoms.Rona johnson scheduled her for audiogram. [id number] Blade BOYKIN [facility] [address] [address] 07/22/2024 13:59:21 07/22/2024 14:03:23 Sensorineural hearing loss of bilateral ears [id number] H90.3 [facility]{{Norm al Normal through 2 kHz Mild* Moderate M oderately- severe Sev ere Profou nd}} {{hearing hearing. s loping to a mild slopi ng to a moderate s loping to moderately severe* sl oping to severe slo ping to profound f lat high frequency low frequency mid frequency cookie bite goins curve}} {{with sen sorineural hearing loss with* cond uctive hearing loss with mixed hearing loss with}} {{excellen t* good fa ir poor no measurable }} word recognitio n.Left ear:{{Norm al* Normal through 2 kHz Mild M oderate Mo derately-s evere Elizabeth re Profoun d}} {{hearing hearing. s loping to a mild slopi ng to a moderate s loping to moderately severe* sl oping to severe slo ping to profound f lat high frequency low frequency mid frequency cookie bite goins curve}} {{with sen sorineural hearing loss with* cond uctive hearing loss with mixed hearing loss with}} {{excellen t* good fa ir poor no measurable }} word recognitio n. Tympanomet ry:Right Ear:{{Type A* Type As Type Ad Type C Type C, shallow & rounded Ty pe B Type B with large volume Cou ld not maintain a hermetic seal}}Left Ear:{{Type A* Type As Type Ad Type C Type C, shallow & rounded Ty pe B Type B with large volume Cou ld not maintain a hermetic seal}} Health Concerns Section Related Observation LastModified by Organization Detai ls LastModified Time None Recorded Concern Status LastModified by Organization Details LastModified Time None Recorded Advance Directives Directive None Recorded Payers Encounter Date Sequence Insurance Name Policy Number Policy Bernard Covered Member ID Bernard Member ID Guarantor Name 05/22/2024 1 [facility] (MEDICARE REPLACEMENT/A DVANTAGE - PPO) [id number] Jennifer Samuel [id number] Jennifer Samuel 07/22/2024 1 [facility] (MEDICARE REPLACEMENT/A DVANTAGE - PPO) [id number] Jennifer Samuel [id number] Jennifer Samuel Notes Date Note Type Note Provider Name and Address Organization Details Recorded Time 05/22/2024 text/html No changes since her last visit. We reviewed results and her imaging showing small cysts at the tongue base suggestive of mucous retention cyst, small elongated cyst in the central more inferior tongue base which could represent a small thyroglossal duct cyst, and 6 mm right vallecular cyst. She denies any sore throat, dysphagia, otalgia. PV: 73-year-old female presents today for evaluation of a throat nodule that was noted incidentally when she was hospitalized for stroke workup forlightheadedness. She denies any dysphagia, sore throat, voice changes, otalgia, heartburn.CT angio showed 8 x 6 x 9 circumscribed nodule in the fat cephalad to the false cord on the left.No distinct lesion was noted in this area. There was some subtle fullness of the false cord. There is also some lymphoid hypertrophy at the base of the tongue.I did recommend repeat imaging with MRI. If there appears to have been growth, would consider exam under anesthesia and biopsy.Cerumen was removed at her request. We can plan on hearing tested the future visit. MADDI RAMIRES MD [address] [place] [address], [place], [address], [facility] - [facility] 05/31/2024 15:05:22 OBGyn Episode No OBEpisode recorded.
--- OUTSIDE RECORDS SUMMARY | 2024-09-29 12:54 | XMS_ITS | Clinical Summary ---
Author Organization [facility] Address [address] [place] [address] Care Team Providers Care Community Center Worker Name Role Phone Unavailable Primary Care Provider Unavailabl e Social History Tobacco Use Types Packs/Day Years Used Date Smoking Tobacco: Never Assessed Sex and Gender Information Value Date Recorded Sex Assigned at Not on file Gender Identity Not on file Sexual Orientation Not on file Plan of Treatment Health Maintenance Due Date Last Done Comments DTaP,Tdap,and Td Vaccines (1 - Tdap) 02/12/1968 Zoster Vaccines (1 of 2) 1999 Pneumococcal Vaccine: 65+ Ye ars (1 of 1 - PCV) 2014 Colorectal Cancer Screening: Colonoscopy 09/19/2023 Depression Screening 09/19/2023 Falls Risk Assessment 09/19/2023 Hepatitis C Screening 09/19/2023 Osteoporosis Screening (Bone Density Screening) 09/19/2023 Social Influencers of Health Screening 09/19/2023 RSV Immunization Patients 60 + Years Old (1 - 1-dose 75+ series) 02/12/2024 COVID-19 Vaccine ( - 2023-2 5 season) 2024 Influenza Vaccine (#1) 2024 HIB Vaccines Aged Out No longer eligi ble based on patient's age to complete this topic HPV Vaccines Aged Out No longer eligi ble based on patient's age to complete this topic Hepatitis A Vaccines Aged Out No long er eligible based on patient's age to complete this topic Hepatitis B Vaccines Aged Out No long er eligible based on patient's age to complete this topic IPV Vaccines Aged Out No longer eligi ble based on patient's age to complete this topic MMR Vaccines Aged Out No longer eligi ble based on patient's age to complete this topic Meningococcal ACWY Vaccine Aged Out N o longer eligible based on patient's age to complete this topic RSV Immunization Patients Un lorrie 20 months Aged Out No longer eligible b ased on patient's age to complete this topic Varicella Vaccines Aged Out No longer eligible based on patient's age to complete this topic
--- OUTSIDE RECORDS SUMMARY | 2024-09-29 12:54 | XMS_ITS | Clinical Summary ---
Author Organization [address] Address [address] [place] [address] Care Team Providers Care Cyber Systems Engineer Name Role Phone Trudy Espinal MD Primary Care Provider [phone] Allergies No known active allergies Medications omega 9-uhb-cbb-fish oil (FISH OIL) 1,000 mg (120 mg-180 mg) capsule Fish Oil Active amlodipine-olme sartan (KARIS) 10-40 mg per tablet 1 tablet Orally Active calcium carbonate (OYSCO-500) 1250 mg (500 mg calcium) tablet 2 (two) times daily. Active CYMBALTA 20 mg capsule 1 capsule (20 mg total). Active hydrALAZINE (APRESOLINE) 10 mg tablet 1 tablet (10 mg total). 04/12/2024 Active metoprolol succinate XL (TOPROL-XL) 50 mg 24 hr tablet 1 tablet (50 mg total). 04/12/2024 Active Family History Relation Name Status Comments Father Mother Social History Tobacco Use Types Packs/Day Years Used Date Smoking Tobacco: Former Cigarettes Smokeless Tobacco: Never Tobacco Cessation:Counseling Given: Not Answered Alcohol Use Standard Drinks/Week Comments Not Currently 1 (1 standard drink = 0.6 oz pur e alcohol) Comments Unknown Sex and Gender Information Value Date Recorded Sex Assigned at Not on file Legal Sex Female 2:34 PM EDT Gender Identity Not on file Sexual Orientation Not on file Last Filed Vital Signs Vital Sign Reading Time Taken Comments Blood Pressure 170/71 04/13/2024 3:23 PM EDT Pulse 67 04/13/2024 3:23 PM EDT Temperature 37.1 ??C (98.8 ??F) 04/13/2024 3:23 PM ED T Respiratory Rate 16 04/13/2024 3:23 PM EDT Oxygen Saturation 97% 04/13/2024 3:23 PM EDT Inhaled Oxygen Concentration - - Weight 61.2 kg (135 lb) 04/13/2024 3:23 PM EDT Height 160 cm (5' 3 ) 04/13/2024 3:23 PM EDT Body Mass Index 23.91 04/13/2024 3:23 PM EDT Plan of Treatment Health Maintenance Due Date Last Done Comments HIV screening 1962 Hepatitis C screening 1967 Tetanus adult (Td q 10,TDAP once) 1969 Lipid disorder screening 1989 Colon cancer screening, Colonoscopy 1994 Diabetes screening 1994 Shingles vaccine (Shingrix) (1 of 2 - Shingrix (RZV) 2 Dose Standard Series) 1999 Osteoporosis screening (bone density) 2014 Pneumo Vaccine 65+ (1 of 1 - PCV) 2014 RSV Discussion (1 - 1-dose 7 5+ series) 02/12/2024 Influenza vaccine 03/26/2024 Covid-19 vaccine series (2023- season) 2024 Breast cancer screening Discontinued Cervical cancer screening Discontinued Meningococcal Vaccine Aged Out No david arya eligible based on patient's age to complete this topic [place] [address] [address] [facility] MGD Care Teams Cyber Systems Engineer Relationship Specialty Start Date End Date Trudy Espinal MD [address] [place] [place] [address] PCP - General Internal Medicine 04/13/24
--- OUTSIDE RECORDS SUMMARY | 2024-09-29 12:54 | XMS_ITS | Clinical Summary ---
Author Organization [facility] Address [address] [place] [address] Care Team Providers Care Newspaper Stuffer Name Role Phone Unavailable Primary Care Provider Unavailabl e Social History Tobacco Use Types Packs/Day Years Used Date Smoking Tobacco: Never Assessed Sex and Gender Information Value Date Recorded Sex Assigned at Not on file Gender Identity Not on file Sexual Orientation Not on file Job Start Date Occupation Industry Not on file Not on file Not on file Plan of Treatment Health Maintenance Due Date Last Done Comments Hepatitis C Screening 1949 COVID-19 Vaccine (#1) 1949 Depression Screening 1961 Preventative Health Evaluation 1967 DTap / Tdap / Td (1 - Tdap) 02/12/1968 Colon Cancer Screening (Colonoscopy) 1994 Shingrix-Zoster Vaccine (1 of 2) 1999 Fall Risk Assessment 2014 Osteoporosis Screening (DEXA Scan) 2014 Pneumococcal Vaccine (1 of 1 - PCV) 2014 RSV Adult > 60+ Yrs or Pregn ant (1 - 1-dose 75+ series) 02/12/2024 Influenza Vaccine (#1) 2024 Hepatitis B Vaccines Aged Out No long er eligible based on patient's age to complete this topic RSV Ped < 20 months Aged Out No longe r eligible based on patient's age to complete this topic
--- OUTSIDE RECORDS SUMMARY | 2024-09-29 12:54 | XMS_ITS | Data Portability ---
Author Organization [place] [facility] Cerv[facility] [place] Address [address] [place] [address] Care Team Providers Care High School Tutor Name Role Phone ABDIAS EDMONDS Primary Care Provider ABDIAS EDMONDS Referring Provider [phone] Assessment Encounter Date Assessment Date Assessment LastModified by Organization Details LastModified Time 04/22/2024 04/22/2024 [facility] Chief Complaint : I have swelling in front of my right knee HPI : Very pleasant 74-year-old woman seen today for evaluation of her right knee. She indicates on 04/09/2024, she was planning on a vacation, packing up when she slipped on a scatter rug falling into her closet landing on all fours but in particular the front of her right knee. Patient states that she got up, got a bit dizzy and nauseous, sat down. Then ultimately, compose herself did well went on her trip. Upon return, the patient noticed that she has some swelling in the front of her right knee. No pain. Despite that she went to an urgent care for evaluation on 04/13/2024, was seen by a physician real estate administrative assistant x-rays were negative for fracture. She was told to ice and elevate. She is seen today indicating that the knee is about the same. Essentially no pain but the swelling has persisted. No limp no external support, no other confounding issues no prior history. REVIEW OF SYSTEMS : Otherwise, she has been in excellent health. PHYSICAL EXAM : Very pleasant youthful appearing woman who walks today without a limp. No trouble getting on exam table. She has an obvious prepatellar collection. No redness or warmth. Soft and fluctuant prepatellar bursal collection. The knee itself was completely benign on exam today. No crepitus no tenderness. Focused Physical Examination : IMAGING/DIAGNOST IC TESTING : Outside x-rays of the right knee show no obvious arthritic changes but some swelling in the prepatellar region. See Discussion Notes Section DIAGNOSIS : Posttraumatic prepatellar bursitis right knee. Procedure : IMPRESSION/PLAN : We discussed a few different options. For now, we will start her on meloxicam 7.5 mg 1 a day, continue ice. She can walk as much as she would like but avoid kneeling on the right knee. Recheck in 3 to 4 weeks and if this persist, the next step would be aspiration and cortisone injection as we discussed today. Any changes have asked that she let me know it was a pleasure seeing her today. Colton Enriquez MD [facility] [place] Not available 04/22/2024 13:44:09 Plan of Treatment Reminders Order Date Submit Date Provider Last Modified By Organization Details Last Modified Time Details Appointments None recorded. Lab None recorded. Referral None recorded. Procedures None recorded. Surgeries None recorded. Imaging None recorded. Medication Orders [facility] 7.5 mg tablet [id number] [address] [place], [address], 13:48:13 Patient TargetsNo targets recorded. Patient InstructionsNo instructions recorded. Reason for Referral None Reported. Problems Name Problem SNOMED Code Status Onset Date Resolution Date Notes Provider Name and Address Organization Details Recorded Time Prepatellar bursitis of right knee 7624014228999 00 Active 2023 Colton Enriquez MD [address], [place], [address] , [place] [facility] 13:40:00 Problem Notes None recorded. Procedures Surgical History Date Name Laterality Status Provider Name and Address Organization Details Recorded Time procedure on ear completed Radha Long [place] [facility] 04/22/2024 13:42:24 Imaging Results None recorded. Procedure Notes None recorded. Medical Equipment None Reported. Allergies No known drug allergies Medications Name Sig Start Date Stop Date Status Note LastModified by Organization Details LastModified Time desonide 0.05 % topical cream APPLY TWICE DAILY TO ECZEMA UP TO 2 WEEKS/Sat NEEDED. 05/13 completed Not Available Not Available Not Available hydralazine 10 mg tablet TAKE 2 TABLETS BY MOUTH TWICE A DAY active Not Available Not Available No t Available metoprolol succinate ER 50 mg tablet,exte nded release 24 hr TAKE 1 TABLET BY MOUTH EVERY DAY active Not Available Not Available No t Available meloxicam 7.5 mg tablet TAKE 1 TABLET BY MOUTH EVERY DAY active Not Available Not Available No t Available fluocinonid e 0.05 % topical cream APPLY SPARINGLY TO AFFECTED AREA 3 TIMES A DAY 05/13 completed Not Available Not Available Not Available neomycin 3.5 mg/g-polymy chandler B 10,000 unit/g-dexa meth 0.1 % eye oint APPLY A SMALL AMOUNT TO THE RIGHT UPPER EYELID MARGIN TWICE DAILY FOR 7-10DAYS 05/13 completed Not Available Not Available Not Available Cymbalta 20 mg capsule,del ayed release TAKE 1 CAPSULE BY MOUTH EVERY DAY active Not Available Not Available No t Available amlodipine 10 mg-olmesart an 40 mg tablet TAKE 1 TABLET BY MOUTH EVERY DAY active Not Available Not Available No t Available Paxlovid 300 mg (150 mg x 2)-100 mg tablets in a dose pack TAKE 2 TABLETS (NIRMATRE LVIR) AND TAKE 1 TABLET (RITONAVI R) BY MOUTH TWICE A DAY FOR 5 DAYS 05/13 completed Not Available Not Available Not Available Vitals Date Recorded Body height Body mass index (BMI) Body weight Provider Name and Address Organization Details Last Updated DateTime 04/22/2024 160.02 cm 24.4 kg/m2 [address]12[address] [place] [facility], 04/22/2024 13:41:16 Date Recorded Body height Body mass index (BMI) Body weight Provider Name and Address Organization Details Last Updated DateTime 05/13/2024 160.02 cm 24.4 kg/m2 15166.[address] [place] [facility] 05/13/2024 11:30:43 Social History Question Answer Notes LastModified by Organizat ion Details LastModified Time Tobacco Smoking Status Never Smoker Radha lees [place] [facility] 04/22/2024 13:41:29 What Is Your Level Of Alcohol Consumption? Heavy [email or web address] Information not available 04/22/2024 How Many Times Per Week Do You Consume Alcohol? 5-7 Times Per Week [email or web address] Information not available 04/22/2024 Do You Use Any Illicit Or Recreational Drugs? No [email or web address] Information not available 04/22/2024 Do You Or Have You Ever Used Any Other Forms Of Tobacco Or Nicotine? No [email or web address] Information not available 04/22/2024 Sex: Unknown Functional Status None recorded. Mental Status None recorded. Family History Relationship Description Onset Age of this Age Resolved Age Notes LastModified by Organization Details LastModified Time Brother Hypertensive disorder [email or web address] Not available 13:42:01 Sister Hypertensive disorder [email or web address] Not available 13:42:01 Mother Hypertensive disorder [email or web address] Not available 13:42:01 Mother Hyperlipidem ia [email or web address] Not available 13:42:08 Father Heart disease [email or web address] Not available 13:42:18 Medical History Condition Response Hypertension Y Gynecological HistoryNo gynecological history recorded. Obstetrics History GPAL:G 0 P 0 0 0 0 Past Encounters Encounter ID Performer Location Encounter Start Date Encounter Closed Date Diagnosis/Indication Diagnosis SNOMED-CT Code Diagnosis ICD10 Code Diagnosis Note [id number] MD TIANNA Lew [address] [place] [address] 04/22/2024 13:08:43 04/22/2024 13:46:05 Pain of right knee joint 3355565192 47372 M25.561 Prepatella r bursitis of right knee 6745168077 27963 M70.41 [id number] MD TIANNA Lew [address] [place] [address] 05/13/2024 11:27:11 05/13/2024 11:38:07 Prepatellar bursitis of right knee 8207866380 84235 M70.41 [facility] Chief Complaint: I am here for checkup on my right knee HPI: Patient returns today now about a month following her right knee injury. She has prepatella r bursitis. When I saw her last time, we decided to try some meloxicam and ice. With, she indicates has been considerab le improvemen t. Still some swelling but is not limiting her in any way. Perhaps some subpatella r discomfort when she is driving her car. No interferen ce with the day-to-day activities . She has been on meloxicam 15 mg a day for 3 weeks. REVIEW OF SYSTEMS: No change PHYSICAL EXAM: Patient walks today without a limp. The prepatella r collection is down by at least 50%. There is some residual swelling, but it is half of what it was. No redness, no tenderness otherwise knee exam was unremarkab le. Focused Physical Examinatio n : IMAGING/DI AGNOSTIC TESTING:Se e Discussion Notes Section DIAGNOSIS: Prepatella r bursitis, right knee, improving. Procedure: IMPRESSION /PLAN: We discussed this. My recommenda tion is that she finish up her meloxicam over the next week. She can also start, at this time, Voltaren gel 3 times a day. Continue icing. She will keep an eye on this. If it continues to resolve, she can be seen back as needed. If it increases, or persists and she would like to have the fluid removed, she knows to give us a call. For now, we agreed to keep an eye on it. Is a pleasure seeing her today. Colton Enriquez, [facility] [phone] I am here for checkup Health Concerns Section Related Observation LastModified by Organization Detai ls LastModified Time None Recorded Concern Status LastModified by Organization Details LastModified Time None Recorded Advance Directives Directive None Recorded Payers Encounter Date Sequence Insurance Name Policy Number Policy Bernard Covered Member ID Bernard Member ID Guarantor Name 04/22/2024 1 [facility] (MEDICARE REPLACEMENT/A DVANTAGE - PPO) [id number] Jennifer Samuel [id number] Jennifer Samuel 05/13/2024 1 [facility] (MEDICARE REPLACEMENT/A DVANTAGE - PPO) [id number] Jennifer Samuel [id number] Jennifer Samuel OBGyn Episode No OBEpisode recorded.
--- OUTSIDE RECORDS SUMMARY | 2024-09-29 12:54 | XMS_ITS ---
Author Name [facility] Organization Unknown History of Medication Use Medication Directions Dispensed Refills Start Date End Date Stat meloxicam 7.5 mg tablet Take 1 tablet every day by oral route. 04/22/2024 active Paxlovid 300 mg (150 mg x 2)-100 mg tablets in a dose pack TAKE 2 TABLETS (NIRMATRELVIR) AND TAKE 1 TABLET (RITONAVIR) BY MOUTH TWICE A DAY FOR 5 DAYS 05/13/2024 active Problems Problem Status Onset Date Problem Type Date of Resoluti on Source Prepatellar bursitis of right knee active 2024-04-22 ProblemAct ENS_AONECT
== END 2024-09-29 13:25 | disposition home or self-care (01) ==
PROVIDERS: PCP Internal Medicine; Visit Provider Internal Medicine
DX: I10 Essential (primary) hypertension (principal); E78.5 Hyperlipidemia, unspecified; E87.1 Hypo-osmolality and hyponatremia; Z00.00 Encounter for general adult medical examination without abnormal findings

== ENCOUNTER → 2024-09-29 12:08 | Outpatient (BNVA) | payer MEDICARE, SELFPAY | PROVIDERS: PCP Internal Medicine; Visit Provider Internal Medicine | DX: Z00.00 Encounter for general adult medical examination without abnormal findings (principal); E87.1 Hypo-osmolality and hyponatremia; E78.5 Hyperlipidemia, unspecified; I10 Essential (primary) hypertension | CPT/HCPCS: 96127; 99397 ==

== ENCOUNTER 2024-12-28 14:29 | Outpatient (REF) | payer MEDICARE, SELFPAY ==
--- OUTSIDE RECORDS SUMMARY | 2024-12-28 16:00 | XMS_ITS | Clinical Summary ---
Author Organization [facility] ity Address [address] [place] [address] Care Team Providers Care Signal Tower Director Name Role Phone Unavailable Primary Care Provider Unavailabl e Social History Tobacco Use Types Packs/Day Years Used Date Smoking Tobacco: Never Assessed Comments Unknown Sex and Gender Information Value Date Recorded Sex Assigned at Not on file Legal Sex Female 8:05 PM EST Gender Identity Not on file Sexual Orientation Not on file Plan of Treatment Health Maintenance Due Date Last Done Comments DTaP,Tdap,and Td Vaccines (1 - Tdap) 02/12/1968 Pneumococcal Vaccine: 50+ Ye ars (1 of 1 - PCV) 1999 Zoster Vaccines (1 of 2) 1999 Colorectal Cancer Screening: Colonoscopy 09/19/2023 Depression Screening 09/19/2023 Falls Risk Assessment 09/19/2023 Hepatitis C Screening 09/19/2023 Osteoporosis Screening (Bone Density Screening) 09/19/2023 Social Influencers of Health Screening 09/19/2023 RSV Immunization Adult Patie nts (1 - 1-dose 75+ series) 02/12/2024 COVID-19 Vaccine ( - 2023-2 5 season) 2024 Influenza Vaccine (Season Ended) 2025 HIB Vaccines Aged Out No longer eligi [...] patient's age to complete this topic Meningococcal B Vaccine Aged Out No l onger eligible based on patient's age to complete this topic RSV Immunization Patients Un lorrie 20 months Aged Out No longer eligible b ased on patient's age to complete this topic Varicella Vaccines Aged Out No longer eligible based on patient's age to complete this topic
--- OUTSIDE RECORDS SUMMARY | 2024-12-28 16:00 | XMS_ITS ---
Author Organization [facility] Address [address] [address] Care Team Providers Care Upholstery Sewer Name Role Phone Trudy Espinal MD Primary Care Provider Briseida Lopez [phone] REASON FOR VISIT Annual (YELLOW FORM DONE) Medications Medication SIG (Take, Route, Frequency, Duration) Notes Start Date End Date Status Multi Vitamin Active Fish Oil Active Cymbalta 20 MG Orally Activ e Clotrimazole-Betamethaso ne 1-0.05 % 1 application Externally Twice a day for 10 days 07/16/2023 Not-Taki ng Clobetasol Propionate 0.05 % 1 application to affected area Externally every night for 2 weeks, then q other night for 2 weeks, then weekly for 90 days 02/27/2023 Active Probiotic - as directed Orally Active Metoprolol-HCTZ ER 50-12.5 MG 1 tablet Orally Active amLODIPine-Olmesartan 10-40 MG 1 tablet Orally Active Vitamin D Active Encounters Encounter Location Date Provider Diagnosis [address] [address] 03/10/2024 Briseida Dillard Plan Of Treatment No Information Progress Notes * SATURNINOGEREEDB:1950 ([age] yo F)Acc No.[id number]:03/10/2024 PROGRESS NOTES Patient:?ALYSSA MATAMOROS Appointment Provider:?Briseida rutledge M.D. :1950???Age:74 Y???Sex:Female D ate:03/10/2024 Address:[facility] [address] [place], [id number] Pcp:Trudy Espinal MD Subjective: * Chief Complaints: * ???1. Annual (YELLOW FORM DO NE). * Medical History:?Essential ( primary) hypertension, Headache, unspecified, Postmenopausal atrophic vaginitis, Lichen sclerosus et atrophicus. * [employer] History:?/ Para?4/3.?Sexual activity?not currently sexually active.?Last Pap Smear:?07/20/19 NIL, NEG HRHPV, 2015, neg.?Mammogram:?02/27/23 < 50% density, 02/24/22 < 50% density, 02/07/21 < 50% density, 02/05/20 < 50% density, 01/2019.?Abnormal Pap Smear:?no history of abnormal pap smears.?History of STD's:?none.?Menarche?10.?Menopause: ?Began at age: ?49 ???Colonoscopy?10/2022 Benign Polyp, 4-5 years ago.?Bone Density:?09/09/18.? * OB History:?Total pregnancies?4.?Total living children?3.?NVD?3.?Miscarriage(s)?1.? * Medications:?Taking Probioti c - Tablet Delayed Release as directed Orally , Taking Metoprolol-HCTZ ER 50-12.5 MG Tablet Extended Release 24 Hour 1 tablet Orally , Taking amLODIPine-Olmesartan 10-40 MG Tablet 1 tablet Orally , Taking Vitamin D , Taking Multi Vitamin , Taking Fish Oil , Taking Cymbalta 20 MG Capsule Delayed Release Particles Orally , Taking Clobetasol Propionate 0.05 % Ointment 1 application to affected area Externally every night for 2 weeks, then q other night for 2 weeks, then weekly , Not-Taking Clotrimazole-Betamethasone 1-0.05 % Cream 1 application Externally Twice a day Objective: * Vitals:? Assessment: Plan: * Treatment: * Images: Billing Information: * Visit Code:? * Procedure Codes:? * Electronic signature of Hugh Dillard MD on 12/28/2024 at 03:59 PM EDT Sign off status: Pending * Appointment Provider:?Briseida Dillard M.D. Date:?03/10/2024 Generated for Lupe bryan/[place]/Екатерина on:?12/28/2024 03:59 PM EDT
--- OUTSIDE RECORDS SUMMARY | 2024-12-28 16:00 | XMS_ITS | Clinical Summary ---
Author Organization [facility] Address [address] [place] [address] Care Team Providers Care Tension Worker Name Role Phone Unavailable Primary Care [...]
--- OUTSIDE RECORDS SUMMARY | 2024-12-28 16:00 | XMS_ITS | Clinical Summary ---
Author Organization [address] Address [address] [place] [address] Care Team Providers Care Kidney Trimmer Name Role Phone Trudy Espinal MD Primary Care Provider [phone] Allergies No known active allergies Medications omega 0-nnq-nim-fish oil (FISH OIL) 1,000 mg (120 mg-180 [...] cancer screening, Colonoscopy 1994 Diabetes screening 1994 Pneumococcal Vaccine (50+ ye ars) (1 of 1 - PCV) 1999 Shingles vaccine (Shingrix) (1 of 2 - Shingrix (RZV) 2 Dose Standard Series) 1999 Osteoporosis screening (bone density) 2014 RSV Immunization (1 - 1-dose 75+ series) 02/12/2024 Covid-19 vaccine series ( - 2023- season) 2024 Influenza vaccine 04/26/2025 Breast cancer screening Discontinued Cervical cancer screening Discontinued Meningococcal Vaccine Aged Out No david arya eligible based on patient's age to complete this topic [place] [address] [place] [address] MGD [facility] MGD Care Teams Kidney Trimmer Relationship Specialty Start Date End Date Trudy Espinal MD [address] [place] [address] PCP - General Internal Medicine 04/13/24
--- OUTSIDE RECORDS SUMMARY | 2024-12-28 16:01 | XMS_ITS ---
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 :1950???Age:74 Y???Sex:Female D ate:03/04/2024 [address] [place] [address] Pcp:Trudy Espinal MD Subjective: * Chief Complaints: * ???1. 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 * Medical History:? Objective: * Vitals:? Assessment: Plan: * Treatment: * Images: Billing Information: * Visit Code:? * Procedure Codes:? * Electronic signature of Hugh Dillard MD on 12/28/2024 at 04:01 PM EDT Sign off status: Pending * Appointment Provider:?Briseida Dillard M.D. Date:?03/04/2024 Generated for Lupe bryan/[place]/eTransmitting on:?12/28/2024 04:01 PM EDT
--- OUTSIDE RECORDS SUMMARY | 2024-12-28 16:01 | XMS_ITS ---
Author Organization [employer] [facility] Address [address] [address] Care Team Providers Care [place] Commissioner Name Role Phone Trudy Espinal MD Primary Care Provider Briseida Lopez [phone] Allergies No Known Allergies REASON FOR VISIT Annual SPA CONCIERGE Physical, Annual SPA CONCIERGE Physical 60-85+ Medications Medication SIG (Take, Route, Frequency, Duration) Notes Start Date End Date Status Fish Oil Active Multi Vitamin Active Clobetasol Propionate 0.05 % 1 application to affected area Externally every night for 2 weeks, then q other night for 2 weeks, then weekly for 90 days 02/27/2023 Active Cymbalta 20 MG Orally Activ e Clotrimazole-Betamethaso ne 1-0.05 % 1 application Externally Twice a day for 10 days 07/16/2023 Not-Taki ng Vitamin D Active amLODIPine-Olmesartan 10-40 MG 1 tablet Orally Active Calcium 500 MG 1 tablet with meals Orally Twice a day Active Metoprolol-HCTZ ER 50-12.5 MG 1 tablet Orally Active Probiotic - as directed Orally Active Social History Tobacco Use: Social History Observation Description Date Details (start date - stop date) Former Smoker NA - NA Tobacco Use/Smoking Question Answer Notes Are you a former smoker Alcohol Screen (Audit-C) Question Answer Notes Did you have a drink contain ing alcohol in the past year? Yes How often did you have a dri nk containing alcohol in the past year? 4 or more times a week (4 points) Points 4 Interpretation Positive Sexual History Question Answer Notes Had sex in the past 12 months (vaginal, oral, or anal)? No Vital Signs Temperature 97.3 degrees Fahrenheit 03/12/20 24 Blood pressure systolic 128 mm Hg 03/12/20 24 Blood pressure diastolic 72 mm Hg 024 Height 63 in 03/12/2024 Weight 132 lbs 03/12/2024 BMI 23.38 kg/m2 03/12/2024 Encounters Encounter Location Date Provider Diagnosis Total [address] [place] [address] 03/12/2024 Briseida Dillard Encounter for screening mammogram for malignant neoplasm of breast Z12.31 ; Encounter for screening for osteoporosis Z13.820 ; Lichen sclerosus et atrophicus L90.0 and Encounter for gynecological examination (general) (routine) without abnormal findings Z01.419 Assessments Encounter Date Diagnosis (ICD Code) Assessment Notes Treatment Notes Treatment Clinical Notes Section Notes 03/12/2024 Encounter for screening mammogram for malignant neoplasm of breast (ICD-10 - Z12.31) REGULAR MAMMOGRAMS AND SBE'S WERE RECOMMENDED. 03/12/2024 Encounter for screening for osteoporosis (ICD-10 - Z13.820) BONE DENSITY WAS ORDERED. 03/12/2024 Lichen sclerosus et atrophicus (ICD-10 - L90.0) DISCUSSED FINDINGS AND CONGRATULATED PAT FOR HER DILIGENCE IN APPLYING THE MEDICATION. APPLY CLOBETASOL OINTMENT TO AFFECTED AREA Q 7 TO 10 DAYS. CHECK VULVA Q 2 MONTHS AND INCREASE OR DECREASE DOSE NEEDED. 03/12/2024 Encounter for gynecological examination (general) (routine) without abnormal findings (ICD-10 - Z01.419) NO MORE PAP TESTS. Plan Of Treatment Treatment Notes Assessment Notes Encounter for screening mamm ogram for malignant neoplasm of breast REGULAR MAMMOGRAMS AND SBE'S WERE RECOMMENDED. Encounter for screening for osteoporosis BONE DENSITY WAS ORDERED. Lichen sclerosus et atrophicus DISCUSSED FINDINGS AND CONGRATULATED PAT FOR HER DILIGENCE IN APPLYING THE MEDICATION. APPLY CLOBETASOL OINTMENT TO AFFECTED AREA Q 7 TO 10 DAYS. CHECK VULVA Q 2 MONTHS AND INCREASE OR DECREASE DOSE NEEDED. Encounter for gynecological examination (general) (routine) without abnormal findings NO MORE PAP TESTS. Pending Test Test Name Order Date MAMMOGRAM, SCREENING 03/12/2024 BONE DENSITY 03/12/2024 MM Digital Mammo Screening 03/12/2024 Next Appt Details Follow Up: 1 Year, Reason: Progress Notes * CHERELLE MATAMOROS:1950 ([age] yo F)Acc No.[id number]:03/12/2024 PROGRESS NOTES Patient:ALYSSA HOLLINGSWORTH Appointment Provider:?Briseida rutledge M.D. :1950???Age:74 Y???Sex:Female D ate:03/12/2024 Address:[address] [place] [address] [id number] Pcp:Trudy Espinal MD Subjective: * Chief Complaints: * ??? Annual SPA CONCIERGE PhysicalAnnua l SPA CONCIERGE Physical 60-85+ * HPI: ???New/Follow-up Patient Consult:? PAT ENTERED MENOPAUSE IN HER 50'S.? SHE IS NOT SEXUALLY ACTIVE. SHE WAS NOTED TO HAVE LICHEN SCLEROSUS IN 2022.? SHE IS APPLYING CLOBETASOL OINTMENT ONCE WEEKLY HER MAINTENANCE DOSE AND IS DOING WELL. SHE UNDERWENT LAPAROSCOPY FOR PAINS AT AGE 17 AND WAS FOUND TO HAVE ENDOMETRIOSIS. HER LAST MAMMOGRAM DONE IN FEBRUARY 2023 SHOWED BREASTS ARE NOT DENSE AND WAS NORMAL. HER LAST PAP TEST IN 2018 WAS NEGATIVE AND HPV NEGATIVE. HER LAST BMD IN 2018 WAS NORMAL. SHE HAD A COLONOSCOPY DONE IN 2022. MODERNA X 3. ???Annual:? Patient presents for annual exam, ages 60-85, postmenopausal. ?General Health Maintenance:?Current breast complaints:?no breast pain, mass, discharge, or skin changes ?Urinary problems:?patient reports no urinary health problems or bowel health problems ?Calcium intake:?takes adequate calcium via diet and supplementation ?Significant SPA CONCIERGE problems:?no significant unix engineer symptoms or problems * ROS:?general:?no?chest pain.?no?palpitations.?no?headache.?no?cough.?no?shortness of breath.?no?fever.?no?unexplained weight loss.?no?nausea/vomiting.?no?change in bowel movements.?no blood in stool.?no?genitourinary complaints.?no?skin complaints.? * Medical History:? 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 * OB History:?Total pregnancies?4.?Total living children?3.?NVD?3.?Miscarriage(s)?1.? * Surgical History:?Endometrio sis 1968Colonoscopy Laparoscopy * Hospitalization/Major Diagno stic Procedure:?3 Vaginal Deliveries * Family History:?Mother: dece ased.?Father: .? * Social History:?Tobacco Use:?Tobacco Use/Smoking?Are you a?former smoker ???Sexual History:?Sexual History?Had sex in the past 12 months (vaginal, oral, or anal)??No ?Details of Sexual History?Are you sexually active??No ???Drugs/Alcohol:?Drugs?Have you used drugs other than those for medical reasons in the past 12 months??No ?Alcohol Screen (Audit-C)?Did you have a drink containing alcohol in the past year??Yes ?How often did you have a drink containing alcohol in the past year??4 or more times a week (4 points) ?Points?4 ?Interpretation?Positive ???Miscellaneous:?Children: yes, 3. ?Exercise: yes, walking, yoga, tennis. ?Home smoke detector use: yes. ?Marital status: . ?Natural support system: yes. 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 ?Sexually active: no. * Medications:?TakingCalcium 5 00 MG Tablet 1 tablet with meals Orally Twice a day Probiotic - Tablet Delayed Release as directed Orally Metoprolol-HCTZ ER 50-12.5 MG Tablet Extended Release 24 Hour 1 tablet Orally amLODIPine-Olmesartan 10-40 MG Tablet 1 tablet Orally Vitamin D Multi Vitamin Fish Oil Cymbalta 20 MG Capsule Delayed Release Particles Orally Clobetasol Propionate 0.05 % Ointment 1 application to affected area Externally every night for 2 weeks, then q other night for 2 weeks, then weekly Taking Calcium 500 MG Tablet 1 tablet with meals Orally Twice a day Taking Probiotic - Tablet Delayed Release as directed Orally Taking Metoprolol- HCTZ ER 50-12.5 MG Tablet Extended Release 24 Hour 1 tablet Orally Taking amLODIPine-Olmesartan 10-40 MG Tablet 1 tablet Orally Taking Vitamin D Taking Multi Vitamin Taking Fish Oil Taking Cymbalta 20 MG Capsule Delayed Release Particles Orally Taking Clobetasol Propionate 0.05 % Ointment 1 application to affected area Externally every night for 2 weeks, then q other night for 2 weeks, then weekly Wve-WvupqdLoacjxnuvfzs-Exlbbefydgfsr 1-0.05 % Cream 1 application Externally Twice a day Medication List reviewed and reconciled with the patientNot-Taking Clotrimazole-Betamethasone 1-0.05 % Cream 1 application Externally Twice a day Medication List reviewed and reconciled with the patient * Allergies:?N.K.D.A.no[Allerg ies Verified] Objective: * Vitals:?Ht: 63 in, Wt: 132 l bs, BMI:23.38Index, BP: 128/72 mm Hg, Temp: 97.3 F. * Examination: ???General Exam: ?CONSTITUTIONAL:?General Appearance:?alert, in no acute distress, normal, well nourished ?NECK/THYROID:?Inspection/Palpation:?normal ?Thyroid:?normal size and shape ?RESPIRATORY:?Auscultation: clear to auscultation bilaterally, Respiratory Effort: normal.?CARDIOVASCULAR:?Auscultation: regular rate and rhythm.?BREAST, Right:?Inspection/Palpation:?no discharge, no masses present, no nipple retraction, no skin changes, no skin dimpling, no tenderness, no lymphadenopathy, no axillary mass, no axillary tenderness ?BREAST, Left:?Inspection/Palpation:?no discharge, no masses present, no nipple retraction, no skin changes, no skin dimpling, no tenderness, no lymphadenopathy, no axillary mass, no axillary tenderness ?GASTROINTESTINAL:?Abdomen:?no masses, nontender, nondistended ?Liver and Spleen:?normal ?Hernias:?no hernias present, no inguinal adenopathy ?MUSCULOSKELETAL:?Inspection/Palpation:?no clubbing, cyanosis, or edema ?SKIN:?Skin:?normal ?NEURO/PSYCH:?Orientation:?time , place, person ?Mood/Affect:?normal?Genitourinary: ?EXTERNAL GENITALIA:?External Genitalia:?WHITE THINNED OUT AREAS HAVE ALMOST COMPLETELY RESOLVED. ?VAGINA:?Vagina:?normal appearance, no abnormal discharge, no lesions ?BLADDER:?Bladder:?no mass, nontender ?URETHRA:?Urethra:?no erythema or lesions present ?CERVIX:?Cervix:?no lesions, nontender ?UTERUS:?Uterus:?nontender, normal contour, normal mobility, normal size ?ADNEXA:?Adnexa:?no masses, no tenderness ?ANUS AND PERINEUM:?Anus/Perineum:?visually normal??? Assessment: * Assessment: 1.?Encounter for screening m ammogram for malignant neoplasm of breast - Z12.31???2.?Encounter for screening for osteoporosis - Z13.820???3.?Lichen sclerosus et atrophicus - L90.0???4.?Encounter for gynecological examination (general) (routine) without abnormal findings - Z01.419 (Primary)??? Plan: * Treatment: 2.?Encounter for screening m ammogram for malignant neoplasm of breast?Imaging: MM Digital Mammo Screening Notes: REGULAR MAMMOGRAMS AND SBE'S WERE RECOMMENDED.?? 3.?Encounter for screening f or osteoporosis?Imaging: BONE DENSITY Notes: BONE DENSITY WAS ORDERED.?? 4.?Lichen sclerosus et atrop hicus? Notes: DISCUSSED FINDINGS AND CONGRATULATED PAT FOR HER DILIGENCE IN APPLYING THE MEDICATION. APPLY CLOBETASOL OINTMENT TO AFFECTED AREA Q 7 TO 10 DAYS. CHECK VULVA Q 2 MONTHS AND INCREASE OR DECREASE DOSE NEEDED.?? * Imaging:? * ?Imaging: MAMMOGRAM, SCR EENING * Procedure Codes:? * Preventive Medicine:? ??YOUR PREVENTIVE WELLNESS PLAN:?Osteoporosis prevention?Calcium, D, strength training.?Breast Cancer Screening (Mammogram):?annually.?Cervical Cancer Screening (Pap Smear):?q 3 years with HPV screen.?Colorectal Cancer Screening:?q 10 years.? * Follow Up:?1 Year * Images: Billing Information: * Visit Code:? [id number] Preventive Care Est Pt. Age 65 and over. * Procedure Codes:? * Sign off status: Completed true * Appointment Provider:?Briseida Dillard M.D. Date:?03/12/2024 Generated for Lupe bryan/[place]/eTransmitting on:?12/28/2024 04:01 PM EDT History and Physical Notes * HPI (History of Present Illness) Category Sub-Category Detail Notes Category Not es New/Follow-up Patient Consult PAT ENTERED MENOPAUSE IN HER 50'S. SHE IS NOT SEXUALLY ACTIVE. SHE WAS NOTED TO HAVE LICHEN SCLEROSUS IN 2022. SHE IS APPLYING CLOBETASOL OINTMENT ONCE WEEKLY HER MAINTENANCE DOSE AND IS DOING WELL. SHE UNDERWENT LAPAROSCOPY FOR PAINS AT AGE 17 AND WAS FOUND TO HAVE ENDOMETRIOSIS. HER LAST MAMMOGRAM DONE IN FEBRUARY 2023 SHOWED BREASTS ARE NOT DENSE AND WAS NORMAL. HER LAST PAP TEST IN 2018 WAS NEGATIVE AND HPV NEGATIVE. HER LAST BMD IN 2018 WAS NORMAL. SHE HAD A COLONOSCOPY DONE IN 2022. MODERNA X 3. Annual General Health Maintenance: Current breast complaints:: no breast pain, mass, discharge, or skin changes Urinary problems:: patient r eports no urinary health problems or bowel health problems Calcium intake:: takes adequ ate calcium via diet and supplementation Significant SPA CONCIERGE problems:: n o significant unix engineer symptoms or problems Examination Category Sub-Category Detail Notes Category Not es General Exam CONSTITUTIONAL: General Appearan ce:: alert, in no acute distress, normal, well nourished NECK/THYROID: Thyroid:: normal size and shape Inspection/Palpation:: normal RESPIRATORY: Auscultation: clear to auscultation bilaterally, Respiratory Effort: normal CARDIOVASCULAR: Auscultation: regula r rate and rhythm GASTROINTESTINAL: Hernias:: no hernias present, no inguinal adenopathy Liver and Spleen:: normal Abdomen:: no masses, nontender, nondiste nded MUSCULOSKELETAL: Inspection/Palpation:: no clubb ing, cyanosis, or edema SKIN: Skin:: normal NEURO/PSYCH: Mood/Affect:: normal Orientation:: time , place, person BREAST, Right: Inspection/Palpation :: no discharge, no masses present, no nipple retraction, no skin changes, no skin dimpling, no tenderness, no lymphadenopathy, no axillary mass, no axillary tenderness BREAST, Left: Inspection/Palpation :: no discharge, no masses present, no nipple retraction, no skin changes, no skin dimpling, no tenderness, no lymphadenopathy, no axillary mass, no axillary tenderness Genitourinary EXTERNAL GENITALIA: External Genitalia:: WHITE THINNED OUT AREAS HAVE ALMOST COMPLETELY RESOLVED. VAGINA: Vagina:: normal appearance, no a bnormal discharge, no lesions BLADDER: Bladder:: no mass, nontender URETHRA: Urethra:: no erythema or lesions present CERVIX: Cervix:: no lesions, nontender UTERUS: Uterus:: nontender, normal conto ur, normal mobility, normal size ADNEXA: Adnexa:: no masses, no tendernes s ANUS AND PERINEUM: Anus/Perineum:: visually norm al
[2024-12-28 16:40] LABS: Anion Gap 11 (12-20); Blood Urea Nitrogen 10 mg/dL (9-16); Calcium 9.2 mg/dL (8.4-10.2); Carbon Dioxide 26 mmol/L (22-29); Chloride 97 mmol/L (96-108); Estimated Glomerular Filt Rate > 60; Glucose Random 100 mg/dL (60-115); Potassium 4.4 mmol/L (3.3-5.1); Sodium 130 mmol/L (135-145)
== END 2024-12-28 14:30 | disposition home or self-care (01) ==
LOC: HO.HMGCLDS 14:29
PROVIDERS: PCP Internal Medicine; Visit Provider Internal Medicine
DX: E87.1 Hypo-osmolality and hyponatremia (principal)
CPT/HCPCS: 36415; 80048

== ENCOUNTER 2024-12-31 11:35 | Outpatient (AMB) | payer MEDICARE, SELFPAY ==
[2024-12-31 11:36] VITALS: BP 126/74; PULSE 67; RESP 18; TEMP 37.2; O2SAT 98; BMI 24.6
--- NOTE | 2024-12-31 11:36 | MHC.PC.OV ---
Vital Signs 12/31/24 11:36 Height 5 ft 3 in Weight 139 lb BMI 24.6 BP 126/74 Blood Pressure Location Lt brachial Position Sitting Respiration 18 Pulse 67 Pulse Source Pulse Oximeter Temp 99.0 F Temp Source Oral Pulse Oximetry (%) 98 Oxygen Delivery Method Room Air Intake Visit Reasons: 3 months f/up Allergies rosuvastatin [From Crestor] Allergy (Verified 12/31/24 11:47) joint pain, pain in legs and arms pravastatin Adverse Reaction (Intermediate, Verified 12/31/24 11:47) elbow pain duloxetine Adverse Reaction (Verified 12/31/24 11:47) stomach upset nausea Medication List - Last Reconciled 12/31/24 by Trudy Espinal MD amlodipine-olmesartan 10-40 mg TAKE 1 TABLET BY MOUTH EVERY DAY duloxetine (Cymbalta) 20 mg PO DAILY hydralazine 20 mg (2 x 10 mg) PO BID metoprolol succinate ER TAKE 1 TABLET BY MOUTH DAILY Tobacco use date assessed: 12/31/24 Dental Screening Dental Screen Date: 09/29/24 HPI 3 months f/up HPI Details Patient presents for the follow-up on hypertension chronic neck pain and anxiety controlled on Cymbalta and diet controlled hyperlipidemia. [facility] Medical History Depression with anxiety Normal breast exam Hyponatremia History of mammogram Cervical radiculopathy Hyperlipidemia HTN (hypertension) Surgical History H/O colonoscopy No pertinent past surgical history Family History Father No problems noted. Mother HTN (hypertension) Social History Housing: House Alcohol intake: current Alcohol intake frequency: a few times a week Patient Tobacco Use Status: Never used Tobacco e-Cigarette/Vaping Use: Never Used service: No Current occupational status: employed Cognitive needs: No Hearing needs: No Vision needs: Yes Questionnaire PHQ-9 Over the last 2 weeks, how often have you been bothered by any of the following problems? 1. Little interest or pleasure in doing things: not at all 2. Feeling down, depressed, or hopeless: not at all 3. Trouble falling or staying asleep, or sleeping too much: not at all 4. Feeling tired or having little energy: not at all 5. Poor appetite or overeating: not at all 6. Feeling bad about yourself - or that you are a failure or have let yourself or your family down: not at all 7. Trouble concentrating on things, such as reading the newspaper or watching television: not at all 8. Moving or speaking so slowly that other people could have noticed. Or the opposite - being so fidgety or restless that you have been moving around a lot more than usual: not at all 9. Thoughts that you would be better off or of hurting yourself in some way: not at all Total score: 0 Source: Developed by Drs. Nilson Burdick, Brianna Long, Mickey Cee and colleagues, with an educational seth from [employer]. Thrive Questionnaire Date Thrive assessed: 09/29/24 I am a: Patient What is your living situation today?: I have a steady place to live Within the past 12 months, did the food you bought not last and you didn't have the money to get more?: Never true Within the past 12 months, did you worry whether your food would run out before you got money to buy more?: Never true Do you have trouble paying for medicines?: No Do you have trouble getting transportation to medical appointments?: No Do you have trouble paying your heating and electricity bill?: No Do you have trouble taking care of your child, family member or friend?: No Do you have trouble with day-to-day activities such as bathing, preparing meals, shopping, managing finances, etc.?: No Are you currently unemployed and looking for a job?: No Are you interested in more education?: No Please select the resources that you would like help with: None Currently or been in a relationship where the following occur: No concerns reported THRIVE Score: 0 AUDIT C Alcohol Use Questionnaire (AUDIT-C) 1. How often do you have a drink containing alcohol?: 2-3 times a week 2. How many drinks containing alcohol do you have on a typical day when you are drinking?: 1 or 2 3. How often do you have six or more drinks on one occasion?: Never Total Score: 3 SAPPHIRE-7 AMB Questionnaire SAPPHIRE-7 Date SAPPHIRE - 7 assessed: 09/29/24 Feeling nervous, anxious, or on edge: 0 = Not at all Not being able to stop or control worryin = Not at all Worrying too much about different things: 0 = Not at all Trouble relaxin = Not at all Being so restless that it is hard to sit still: 0 = Not at all Becoming easily annoyed or irritable: 0 = Not at all Feeling afraid as if something awful might happen: 0 = Not at all Total SAPPHIRE-7 score (0-4 normal; 5-9 mild; 10-14 moderate; 15-21 severe): 0 Source: Developed by Drs. Nilson Burdick, Brianna Long, Mickey Cee and colleagues, with an educational seth from [employer]. Review of Systems Const All systems reviewed & are unremarkable except as noted in HPI and below ENT Reports no additional complaints Card Reports no additional complaints Resp Reports no additional complaints GI Reports no additional complaints Reports no additional complaints Physical exam (Primary Care) Vital Signs: Last Vital Signs Temp 99.0 F 12/31/24 11:36 Pulse 67 12/31/24 11:36 Resp 18 12/31/24 11:36 BP 126/74 12/31/24 11:36 Pulse Ox 98 12/31/24 11:36 Oxygen Delivery Method Room Air 12/31/24 11:36 BMI result Body Mass Index 24.6 Tobacco/Smoking Status: Tobacco use Status Tobacco use date assessed 12/31/24 12/31/24 11:50 Patient Tobacco Use Status Never used Tobacco 12/31/24 11:36 e-Cigarette/Vaping Use Never Used 12/31/24 11:36 PHQ-9: PHQ-9 Score PHQ-9: Total score 0 12/31/24 11:36 Thrive Assessment: Date of Thrive Assessment Date Thrive assessed 09/29/24 12/31/24 11:36 Currently or been in a relationship where the following occur: No concerns reported Const General: no acute distress HENMT Face and sinus: Yes normal facial exam Eyes General: appearance normal, both eyes and all related structures Resp Effort & Inspection: normal respiratory effort Auscultation: clear to auscultation bilaterally Cardio Rate: regular rate Heart sounds: S1 normal heart sound present and S2 normal heart sound present GI Palpation (GI): Soft to palpation Coding Level of Care Code Est Pt Level 4 (12867) Diagnoses HTN (hypertension) I10 Hyperlipidemia E78.5 Hyponatremia E87.1 Assessment & Plan Assessment & Plan (1) HTN (hypertension): Code(s): I10 - Essential (primary) hypertension Category: Medical Plan: Continue current medications (2) Hyperlipidemia: Comment: intolerant to Pravastatin, Crestor, body aches Code(s): E78.5 - Hyperlipidemia, unspecified Category: Medical Plan: Continue low-cholesterol diet (3) Hyponatremia: Comment: 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 Panel Fast 5 Months E78.5 - Hyperlipidemia, unspecified, E87.1 - Hypo-osmolality and hyponatremia, I10 - Essential (primary) hypertension Lipid Panel 5 Months E78.5 - Hyperlipidemia, unspecified, E87.1 - Hypo-osmolality and hyponatremia, I10 - Essential (primary) hypertension
--- OUTSIDE RECORDS SUMMARY | 2024-12-31 13:07 | XMS_ITS | Clinical Summary ---
Author Organization [address] Address [address] [place] [address] Care Team Providers Care Heel Blacker Name Role Phone Trudy Espinal MD Primary Care Provider [phone] Allergies No known active allergies Medications omega 5-xwn-ogn-fish oil (FISH OIL) 1,000 mg (120 mg-180 [...] patient's age to complete this topic [place] [address] [address] [facility] Care Teams Heel Blacker Relationship Specialty Start Date End Date Trudy Espinal MD [address] [facility] [place] [address] PCP - General Internal Medicine 04/13/24
--- OUTSIDE RECORDS SUMMARY | 2024-12-31 13:07 | XMS_ITS | Data Portability ---
Author Organization [place] [facility] [place] Address [address] [place] [address] Care Team Providers Care Able Seaman Name Role Phone ABDIAS EDMONDS Primary Care Provider ABDIAS EDMONDS Referring Provider [phone] Assessment Encounter Date Assessment Date Assessment LastModified by Organization Details LastModified Time 04/22/2024 04/22/2024 [facility] Chief Complaint : I have swelling in [...] on 04/13/2024, was seen by a physician assistant manager pt x-rays were negative for fracture. She was [...] her today. Colton Enriquez MD [facility] [place] donna Not available 04/22/2024 13:44:09 Plan of Treatment Reminders Order Date Submit Date Provider Last Modified By Organization Details Last Modified Time Details Appointments None recorded. Lab None recorded. Referral None recorded. Procedures None recorded. Surgeries None recorded. Imaging None recorded. Medication Orders meloxicam 7.5 mg tablet 2023 024 [id number], [address] [place], [address], 13:48:13 Patient TargetsNo targets recorded. Patient InstructionsNo instructions recorded. Reason for Referral None Reported. Problems Name Problem SNOMED Code Status Onset Date Resolution Date Notes Provider Name and Address Organization Details Recorded Time Prepatellar bursitis of right knee 0706963024618 00 Active 2023 Colton Enriquez MD [address], [place], [address] , [place] [facility] [place], P 13:40:00 Problem Notes None recorded. Procedures Surgical History Date Name Laterality Status Provider Name and Address Organization Details Recorded Time procedure on ear completed Radha Long [place] [facility] [place] 04/22/2024 13:42:24 Imaging Results None recorded. [...] Updated DateTime 04/22/2024 160.02 cm 24.4 kg/m2 58572.[address] [facility] [place], 04/22/2024 13:41:16 Date Recorded Body height Body mass index (BMI) Body weight Provider Name and Address Organization Details Last Updated DateTime 05/13/2024 160.02 cm 24.4 kg/m2 83867.[address] [facility] [place] 05/13/2024 11:30:43 Social History Question Answer Notes LastModified by Organizat ion Details LastModified Time Tobacco Smoking Status Never Smoker Radha lees [place] [facility] [place] 04/22/2024 13:41:29 What Is Your Level Of Alcohol Consumption? Heavy [email or web address] Information not available 04/22/2024 How Many Times Per Week Do You Consume Alcohol? 5-7 Times Per Week [email or web address] Information not available 04/22/2024 Do You Use Any Illicit Or Recreational Drugs? No [email or web address] Information not available 04/22/2024 Do You Or Have You Ever Used Any Other Forms Of Tobacco Or Nicotine? No [email or web address] Information not available 04/22/2024 Sex: Unknown Functional Status None recorded. Mental Status None recorded. Family History Relationship Description Onset Age of this Age Resolved Age Notes LastModified by Organization Details LastModified Time Brother Hypertensive disorder [email or web address] Not available 13:42:01 Sister Hypertensive disorder [email or web address] Not available 13:42:01 Mother Hypertensive disorder [email or web address] Not available 13:42:01 Mother Hyperlipidem ia [email or web address] Not available 13:42:08 Father Heart disease [email or web address] Not available 13:42:18 Medical History Condition Response Hypertension Y Gynecological HistoryNo gynecological history recorded. Obstetrics History GPAL:G 0 P 0 0 0 0 Past Encounters Encounter ID Performer Location Encounter Start Date Encounter Closed Date Diagnosis/Indication Diagnosis SNOMED-CT Code Diagnosis ICD10 Code Diagnosis Note [id number] MD TIANNA Lew [address] [place] [address] 04/22/2024 13:08:43 04/22/2024 13:46:05 Pain of right knee joint 1290231795 64705 M25.561 Prepatella r bursitis of right knee 5631179943 99714 M70.41 [id number] MD TIANNA Lew [address] [place] [address] 05/13/2024 11:27:11 05/13/2024 11:38:07 Prepatellar bursitis of right knee 0695237428 27245 M70.41 [facility] Chief Complaint: I am here for checkup [...] a pleasure seeing her today. Colton Enriquez, [facility] [phone] I am here for checkup Health Concerns Section Related Observation LastModified by Organization Detai ls LastModified Time None Recorded Concern Status LastModified by Organization Details LastModified Time None Recorded Advance Directives Directive None Recorded Payers Encounter Date Sequence Insurance Name Policy Number Policy Bernadr Covered Member ID Bernard Member ID Guarantor Name 04/22/2024 1 [facility] (MEDICARE REPLACEMENT/A DVANTAGE - PPO) [id number] Jennifer Samuel [id number] Jennifer Samuel 05/13/2024 1 [facility] (MEDICARE REPLACEMENT/A DVANTAGE - PPO) [id number] Jennifer Samuel [id number] Jennifer Samuel OBGyn Episode No OBEpisode recorded.
--- OUTSIDE RECORDS SUMMARY | 2024-12-31 13:07 | XMS_ITS | Clinical Summary ---
Author Organization [facility] Address [address] [place] [address] Care Team Providers Care Combination Building Inspector Name Role Phone Unavailable Primary Care Provider [...]
--- OUTSIDE RECORDS SUMMARY | 2024-12-31 13:07 | XMS_ITS ---
Author Organization [facility] Address [address] [address] Care Team Providers Care Architect In Training Name Role Phone Trudy Espinal MD Primary Care Provider Briseida Lopez [phone] REASON FOR VISIT Annual (YELLOW FORM DONE) [...] Active Encounters Encounter Location Date Provider Diagnosis [address] [address] 03/10/2024 Briseida Dillard Plan Of Treatment No Information Progress Notes * GE MATAMOROSREEDB:1950 ([age] yo F)Acc No.[id number]:03/10/2024 PROGRESS NOTES Patient:?ALYSSA MATAMOROS Appointment Provider:?Briseida rutledge M.D. :1950???Age:74 Y???Sex:Female D ate:03/10/2024 Address:[facility] [address] [place] Pcp:Trudy Espinal MD Subjective: * Chief Complaints: * ???1. Annual (YELLOW FORM DO NE). * Medical History:?Essential ( primary) hypertension, Headache, unspecified, Postmenopausal atrophic vaginitis, Lichen sclerosus et atrophicus. * Animal Services Officer History:?/ Para?4/3.?Sexual activity?not currently sexually active.?Last [...] Electronic signature of Hugh Dillard MD on 12/31/2024 at 01:07 PM EDT Sign off status: Pending * Appointment Provider:?Briseida Dillard M.D. Date:?03/10/2024 Generated for Lupe bryan/[place]/Екатерина on:?12/31/2024 01:07 PM EDT
--- OUTSIDE RECORDS SUMMARY | 2024-12-31 13:08 | XMS_ITS ---
Author Organization [facility] Address [address] [address] Care Team Providers Care Immigration Judge Name Role Phone Trudy Espinal MD Primary Care Provider Briseida Lopez [phone] Allergies No Known Allergies REASON FOR VISIT Annual SHELL MOLD BONDER Physical, Annual SHELL MOLD BONDER Physical 60-85+ Medications Medication SIG (Take, Route, [...] Encounters Encounter Location Date Provider Diagnosis [facility] [address] [place] [address] 03/12/2024 Briseida Dillard Encounter for screening mammogram [...] * CHERELLE MATAMOROS:1950 ([age] yo F)Acc No.[id number]:03/12/2024 PROGRESS NOTES Patient:ALYSSA HOLLINGSWORTH Appointment Provider:?Briseida rutledge M.D. :1950???Age:74 Y???Sex:Female D ate:03/12/2024 Address:[address] [place] [address] [facility] Pcp:Trudy Espinal MD Subjective: * Chief Complaints: * ??? Annual SHELL MOLD BONDER PhysicalAnnua l SHELL MOLD BONDER Physical 60-85+ * HPI: ???New/Follow-up Patient Consult:? [...] adequate calcium via diet and supplementation ?Significant SHELL MOLD BONDER problems:?no significant ob gyn physician assistant symptoms or problems * ROS:?general:?no?chest pain.?no?palpitations.?no?headache.?no?cough.?no?shortness of breath.?no?fever.?no?unexplained weight loss.?no?nausea/vomiting.?no?change in bowel movements.?no blood in stool.?no?genitourinary complaints.?no?skin complaints.? * Medical History:? * Substance Abuse Prevention Coordinator History:?/ Para?4/3.?Sexual activity?not currently sexually active.?Last Pap [...] other night for 2 weeks, then weekly Qxk-CtgjsmBhdoeygexejw-Kunwlwrhrehsp 1-0.05 % Cream 1 application Externally Twice [...] * Images: Billing Information: * Visit Code:? 83035 Preventive Care Est Pt. Age 65 and over. * Procedure Codes:? * Sign off status: Completed true * Appointment Provider:?Briseida Dillard M.D. Date:?03/12/2024 Generated for Lupe bryan/[place]/eTransmitting on:?12/31/2024 01:07 PM EDT History and Physical Notes * [...] ate calcium via diet and supplementation Significant SHELL MOLD BONDER problems:: n o significant ob gyn physician assistant symptoms or problems Examination Category Sub-Category Detail [...]
--- OUTSIDE RECORDS SUMMARY | 2024-12-31 13:08 | XMS_ITS | Data Portability ---
Author Organization [place] [facility], [facility] Address [address] [address] Care Team Providers Care Marketing Producer Name Role Phone ABDIAS EDMONDS Primary Care Provider [phone] Assessment No assessment recorded. Plan of Treatment [...] Sensorine ural hearing loss of bilateral ears 543440458 Active 2019 Sensorine ural hearing loss, bilateral ; Note: Date Diagnosed : 01/28/2020 2:30 PM (H90.3) Not Available [facility] 02:48:02 Impacted cerumen in right ear 05138788550 76360 Active 2019 Impacted cerumen, right ear; Note: Date Diagnosed : 01/28/2020 3:00 PM (H61.21) Not Available [facility] 4 02:48:01 Cyst of pharynx 63570855 Active 2023 MADDI RAMIRES MD 100 [facility] [address] , [place] - [facility] 4 15:02:21 Problem Notes None recorded. Procedures Surgical History Date Name Laterality Status Provider Name and Address Organization Details Recorded Time 07/22/20 24 Comp Audio with Tymps - 94605 & 13421 completed Kim Seth [place] - [facility] 07/22/2024 14:00:58 05/22/20 24 Fiberoptic Laryngoscopy (Comprehensive) completed MADDI RAMIRES MD [address] [place] [address],[place] [address], [place], [address], [place] - [facility] 05/31/2024 15:00:27 Imaging Results None recorded. Procedure [...] mg tablet 2019 active Medicati on ID: [id number] D uration Value: 90 Brand Name: pravasta [...] Available Vitamin D3 active Medicati on ID: 705753 B rand Name: Vitamin D3 Send Method: [...] Updated DateTime 05/22/2024 160.02 cm 23.9 kg/m2 97763.97 g Deann Horvath [place] - [facility] 05/22/2024 13:53:12 Social History None recorded. Functional Status None recorded. Mental Status None recorded. Family History Nothing Reported. Medical History Condition Response Hyperlipidemia Y Hypertension Y Gynecological HistoryNo gynecological history recorded. Obstetrics History GPAL:G 0 P 0 0 0 0 Past Encounters Encounter ID Performer Location Encounter Start Date Encounter Closed Date Diagnosis/Indication Diagnosis SNOMED-CT Code Diagnosis ICD10 Code Diagnosis Note [id number] MADDI RAMIRES MD [facility] [address] [address] 05/22/2024 13:42:58 05/22/2024 14:09:10 Cyst of pharynx 04433273 J39.2 No changes in health since her [...] in symptoms.Rona johnson scheduled her for audiogram. [id number] Blade BOYKIN [facility] [address] [address] 07/22/2024 13:59:21 07/22/2024 14:03:23 Sensorineural hearing loss of bilateral ears 267549464 H90.3 [facility]Norm al Normal through 2 kHz Mild* [...] Recorded Advance Directives Directive None Recorded Payers Insurance Date Sequence Insurance Name Policy Number Policy Bernard Covered Member ID Bernard Member ID Guarantor Name 07/19/2024 1 [facility] (MEDICARE REPLACEMENT/A DVANTAGE - PPO) [id number] Jennifer Samuel [id number] Jennifer Samuel Notes Date Note Type Note [...] tested the future visit. MADDI RAMIRES MD [address] [place] [address], [place], [address], [facility] - [facility] 05/31/2024 15:05:22 OBGyn Episode No OBEpisode recorded.
--- OUTSIDE RECORDS SUMMARY | 2024-12-31 13:08 | XMS_ITS ---
Author Organization [facility] Address [address] [address] Care Team Providers Care Silo Operator Name Role Phone Trudy Espinal MD Primary Care Provider Briseida Lopez Unavailable [phone] REASON FOR VISIT Annual TEXTILE DYER Physical Encounters Encounter Location Date Provider Diagnosis [facility] [address] [address] 03/04/2024 Briseida Dillard Plan Of Treatment No Information Progress Notes * GAYATRI MATAMOROSB:1950 ([age] yo F)Acc No.[id number]:03/04/2024 PROGRESS NOTES Patient:?ALYSSA MATAMOROS Appointment Provider:?Briseida rutledge M.D. :1950???Age:74 Y???Sex:Female D ate:03/04/2024 [address] [address] Pcp:Trudy Espinal MD Subjective: * Chief Complaints: * ???1. Annual TEXTILE DYER Physical. * Medical History:? Objective: * Vitals:? Assessment: Plan: * Treatment: * Images: Billing Information: * Visit Code:? * Procedure Codes:? * Electronic signature of Hugh Dillard MD on 12/31/2024 at 01:08 PM EDT Sign off status: Pending * Appointment Provider:?Briseida Dillard M.D. Date:?03/04/2024 Generated for Lupe bryan/[place]/eTransmitting on:?12/31/2024 01:08 PM EDT
--- OUTSIDE RECORDS SUMMARY | 2024-12-31 13:08 | XMS_ITS | Clinical Summary ---
Author Organization [facility] Address [address] [place] [address] Care Team Providers Care Drip Molder Name Role Phone Unavailable Primary Care Provider [...]
--- OUTSIDE RECORDS SUMMARY | 2024-12-31 13:08 | XMS_ITS | Patient Health Record ---
Author Organization [facility] Address [address] [place] [address] Care Team Providers Care Apparel Designer Name Role Phone Trudy Espinal MD Primary Care Provider Briseida Lopez Unavailable [phone] Allergies No Known Allergies Reason For Referral No Information Medications Medication SIG (Take, Route, Frequency, Duration) Notes Start Date End Date Status Vitamin D Active amLODIPine-Olmesartan 10-40 MG 1 tablet Orally Active Fish Oil Active Multi Vitamin Active Clobetasol Propionate 0.05 % 1 application to affected area Externally every night for 2 weeks, then q other night for 2 weeks, then weekly for 90 days 02/27/2023 Active Cymbalta 20 MG Orally Activ e Clotrimazole-Betamethaso ne 1-0.05 % 1 application Externally Twice a day for 10 days 07/16/2023 Not-Taki ng Calcium 500 MG 1 tablet with meals [...] 12 months (vaginal, oral, or anal)? No Problems Problem Type SNOMED Code ICD Code Onset Dates Problem Status W/U Status Risk Notes Problem Postmenopausal atrophic vaginitis (N95.2) Active confirmed Problem Essential hypertension (10261800) Essential (primary) hypertension (I10) Active confirmed Problem Localized morphea (501653342) Lichen sclerosus et atrophicus (L90.0) Active confirmed Problem Screening for malignant neoplasm of breast (236465435) Encounter for screening mammogram for malignant neoplasm of breast (Z12.31) Active confirmed Vital Signs Temperature 97.3 degrees Fahrenheit 03/12/2024 Blood pressure diastolic 72 mm Hg 03/12/2024 Height 63 in 03/12/2024 Blood pressure systolic 128 mm Hg 03/12/2024 Weight 132 lbs 03/12/2024 BMI 23.38 kg/m2 03/12/2024 Encounters Encounter Location Date Provider Diagnosis [place] [address] [place] [address] 03/10/2024 [place]ida Dillard [place] [address] [facility] [address] [place] [address] 03/12/2024 Briseida Dillard Encounter for screening mammogram [...] NO MORE PAP TESTS. Plan Of Treatment Pending Test Test Name Order Date MAMMOGRAM, SCREENING 11/28/2021 MAMMOGRAM, SCREENING 02/27/2023 MAMMOGRAM, SCREENING 03/12/2024 Urinalysis 07/20/2019 Urinalysis 11/28/2021 BONE DENSITY 09/18/2023 BONE DENSITY 02/27/2023 BONE DENSITY 03/12/2024 MM Digital Mammo Screening 03/12/2024 MM Digital Mammo Screening 09/18/2023 MM Digital Mammo Screening 11/28/2021 MM Digital Mammo Screening 02/27/2023 Insurance Providers Payer Name Payer Address Payer Phone Subscriber Number Group Number Insured Name Patient Relationship to Insured Coverage Start Date Coverage End Date [employer] [address] [address] [place] [address] [id number] ALYSSA MATAMOROS Self - patient is the insured Medical (General) History Medical History History ICD Code Essential (primary) hypertension I10 Headache, unspecified R51.9 Postmenopausal atrophic vaginitis N95.2 Lichen sclerosus et atrophicus L90.0 Surgical History Surgery Date(Month/Year) Endometriosis 1968 Colonoscopy Laparoscopy Hospitalization History Reason Date(Month/Year) 3 Vaginal Deliveries
== END 2024-12-31 12:27 | disposition home or self-care (01) ==
LOC: HO.HMCC 11:35
PROVIDERS: PCP Internal Medicine; Visit Provider Internal Medicine
DX: I10 Essential (primary) hypertension (principal); E78.5 Hyperlipidemia, unspecified; E87.1 Hypo-osmolality and hyponatremia

== ENCOUNTER → 2024-12-31 11:35 | Outpatient (BNVA) | payer MEDICARE, SELFPAY | PROVIDERS: PCP Internal Medicine; Visit Provider Internal Medicine | DX: I10 Essential (primary) hypertension (principal); E78.5 Hyperlipidemia, unspecified; E87.1 Hypo-osmolality and hyponatremia | CPT/HCPCS: 99212 ==

== ENCOUNTER 2025-06-07 11:34 | Outpatient (AMB) | payer MEDICARE, SELFPAY ==
--- OUTSIDE RECORDS SUMMARY | 2024-03-04 07:00 | XMS_ITS ---
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 :1950 A ge:74 Y S ex:Female Date:03/04/2024 Address[place] [place] [address] Pcp:Trudy Espinal MD Subjective: * Chief Complaints: * 1 . 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 * Medical History: Objective: * Vitals: Assessment: Plan: * Treatment: * Images: Billing Information: * Visit Code: * Procedure Codes: * Electronic signature of Hugh Dillard MD on 06/07/2025 at 11:37 AM EDT Sign off status: Pending * Appointment Provider: Royce Dillard M.D. Date: 0 03/04/2024 Generated for Printi ng/Faxing/eTransmitting on: 1 11:37 AM EDT
--- OUTSIDE RECORDS SUMMARY | 2025-06-07 11:37 | XMS_ITS | Clinical Summary ---
Author Organization [facility] Address [address] [place] [address] Care Team Providers Care Carpenter'S Helper Name Role Phone Trudy Espinal MD Primary Care Provider [phone] Allergies No known active allergies Medications omega 0-exi-ouq-fish oil (FISH OIL) 1,000 mg (120 mg-180 [...] 67 04/13/2024 3:23 PM EDT Temperature 37.1 C (98.8 F) 04/13/2024 3:23 PM EDT Respiratory Rate 16 04/13/2024 3:23 PM EDT [...] 10,TDAP once) 1969 Lipid disorder screening 1989 Diabetes screening 1994 Pneumococcal Vaccine (50+ ye ars) (1 of 1 - PCV) 1999 Shingles vaccine (Shingrix) (1 of 2 - Shingrix (RZV) 2 Dose Standard Series) 1999 Osteoporosis screening (bone density) 2014 RSV Immunization (1 - 1-dose 75+ series) 02/12/2024 Influenza vaccine 03/26/2025 Covid-19 vaccine series ( - 2023-25 season) 2025 Breast cancer screening Discontinued Cervical cancer screening Discontinued Colon cancer screening, Colonoscopy Discontinued Meningococcal B Vaccine Aged Out No l onger eligible based on patient's age to complete this topic Meningococcal Vaccine Aged Out No david arya eligible based on patient's age to complete this topic Insurance [facility] MGD [facility] MGD [facility] MGD Care Teams Carpenter'S Helper Relationship Specialty Start Date End Date Trudy Espinal MD [address] [facility] [place] [address] PCP - General Internal Medicine 04/13/24
--- OUTSIDE RECORDS SUMMARY | 2025-06-07 11:37 | XMS_ITS | Clinical Summary ---
Author Organization [facility] Address [address] [place] [address] Care Team Providers Care Document Clerk Name Role Phone Unavailable Primary Care Provider [...] 1999 Zoster Vaccines (1 of 2) 1999 Falls Risk Assessment 09/19/2023 Hepatitis C Screening 09/19/2023 Osteoporosis Screening (Bone Density Screening) 09/19/2023 Social Influencers of Health Screening 09/19/2023 RSV Immunization Adult Patie nts (1 - 1-dose 75+ series) 02/12/2024 Depression Screening 08/26/2024 COVID-19 Vaccine (1 - 2023-2 5 season) 2025 Influenza Vaccine (#1) 2025 HIB Vaccines Aged Out No longer [...]
--- OUTSIDE RECORDS SUMMARY | 2025-06-07 11:37 | XMS_ITS | Clinical Summary ---
Author Organization [facility] Address [address] [place] [address] Care Team Providers Care Manager Crisis Name Role Phone Unavailable Primary Care Provider [...] Tdap / Td (1 - Tdap) 02/12/1968 Shingrix-Zoster Vaccine (1 of 2) 1999 Fall Risk Assessment 2014 Osteoporosis Screening (DEXA Scan) 2014 Pneumococcal Vaccine (1 of 1 - PCV) 2014 RSV Adult > 60+ Yrs or Pregn ant (1 - 1-dose 75+ series) 02/12/2024 Influenza Vaccine (#1) 2025 Hepatitis B Vaccines Aged Out No long er eligible based on patient's age to complete this topic RSV Ped < 20 months Aged Out No longe r eligible based on patient's age to complete this topic
--- OUTSIDE RECORDS SUMMARY | 2025-06-07 11:37 | XMS_ITS ---
[facility] Name [facility] History of Medication Use Medication Directions Dispensed Refills Start Date End Date Stat meloxicam 7.5 mg tablet Take 1 tablet every day by oral route. 04/22/2024 active desonide 0.05 % topical cream APPLY TWICE DAILY TO ECZEMA UP TO 2 WEEKS/MONTH NEEDED. 05/13/2024 active fluocinonide 0.05 % topical cream APPLY SPARINGLY TO AFFECTED AREA 3 TIMES A DAY 05/13/2024 completed neomycin 3.5 mg/g-polymyxin B 10,000 unit/g-dexameth 0.1 % eye oint APPLY A SMALL AMOUNT TO THE RIGHT UPPER EYELID MARGIN TWICE DAILY FOR 7-10DAYS 05/13/2024 active Paxlovid 300 mg (150 mg x 2)-100 mg tablets in a dose pack TAKE 2 TABLETS (NIRMATRELVIR) AND TAKE 1 TABLET (RITONAVIR) BY MOUTH TWICE A DAY FOR 5 DAYS 05/13/2024 active meloxicam 7.5 mg tablet active amlodipine 10 mg-olmesartan 40 mg tablet TAKE 1 TABLET BY MOUTH EVERY DAY active Cymbalta 20 mg capsule,delayed release TAKE 1 CAPSULE BY MOUTH EVERY DAY active hydralazine 10 mg tablet TAKE 2 TABLETS BY MOUTH TWICE A DAY active metoprolol succinate ER 50 mg tablet,extended release 24 hr TAKE 1 TABLET BY MOUTH EVERY DAY active Problems Problem Status Onset Date Problem Type Date of Resoluti on Source Prepatellar bursitis of right knee active 2024-04-22 ProblemAct ENS_AONECT Encounters Encounter Type Encounter Reason Primary Diagnosis Location Date Ambulatory [facility] [place] 05/14/2024 Ambulatory [facility] [place] 05/13/2024 Ambulatory [facility] [place] 05/12/2024 Ambulatory [facility] [place] 04/23/2024 Ambulatory [facility] [place] 04/22/2024 Ambulatory [facility] [place] 04/22/2024 Ambulatory [facility] [place] 04/22/2024 Ambulatory [facility] [place] 04/22/2024 Ambulatory [facility] [place] 04/22/2024 Ambulatory [facility] [place] 04/22/2024 Ambulatory [facility] [place] 04/22/2024 Ambulatory [facility] [place] 04/20/2024 Ambulatory [facility] 04/15/2023 Care Team Organization Name Specialty Phone Email Start Date End Da te [facility] NO PROVIDER Primary Care 09/15/2023 [facility] 023 04/15/2023 [facility] 023
--- NOTE | 2025-06-07 11:39 | A.OFFPC_ITS ---
Vital Signs 06/07/25 11:40 Height 5 ft 3 in Weight 136 lb BMI 24.1 BP 126/64 Blood Pressure Location Lt brachial Position Sitting Respiration 18 Pulse 63 Pulse Source Pulse Oximeter Temp 98.2 F Temp Source Oral Pulse Oximetry (%) 99 Oxygen Delivery Method Room Air Intake Visit Reasons: 5 months Intake Note: Pt is here today for 5 months follow up visit. Allergies rosuvastatin (From Crestor) Allergy (Verified 06/07/25 11:43) joint pain, pain in legs and arms pravastatin Adverse Reaction (Intermediate, Verified 06/07/25 11:43) elbow pain duloxetine Adverse Reaction (Verified 06/07/25 11:43) stomach upset nausea Medication List - Last Reconciled 06/07/25 by Trudy Espinal MD amlodipine-olmesartan 10-40 mg TAKE 1 TABLET BY MOUTH EVERY DAY duloxetine (Cymbalta) 20 mg PO DAILY hydralazine 20 mg (2 x 10 mg) PO BID metoprolol succinate ER TAKE 1 TABLET BY MOUTH DAILY Tobacco use date assessed: 06/07/25 Fall risk assessment: No Falls in past year Last assessed Fall Risk: 06/07/25 Dental Screening Dental Screen Date: 09/29/24 HPI 5 months HPI Details Pt presents for f/u HTN, chronic neck pain controlled on Cymbalta. Patient is going to [place] for a few weeks in August. [facility] Medical History Postmenopausal Depression with anxiety Normal breast exam Hyponatremia History of mammogram Cervical radiculopathy Hyperlipidemia HTN (hypertension) Surgical History H/O colonoscopy No pertinent past surgical history Family History Father No problems noted. 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 1. Little interest or pleasure in doing things: not at all 2. Feeling down, depressed, or hopeless: not at all 3. Trouble falling or staying asleep, or sleeping too much: not at all 4. Feeling tired or having little energy: not at all 5. Poor appetite or overeating: not at all 6. Feeling bad about yourself - or that you are a failure or have let yourself or your family down: not at all 7. Trouble concentrating on things, such as reading the newspaper or watching television: not at all 8. Moving or speaking so slowly that other people could have noticed. Or the opposite - being so fidgety or restless that you have been moving around a lot more than usual: not at all 9. Thoughts that you would be better off or of hurting yourself in some way: not at all Total score: 0 Depression Screening Interpretation: Negative Depression Screening Done: Yes Source: Developed by Drs. Nilson Burdick, Brianna Long, Mickey Cee and colleagues, with an educational seth from [employer]. Thrive Questionnaire Date Thrive assessed: 12/31/24 I am a: Patient What is your living situation today?: I have a steady place to live Within the past 12 months, did the food you bought not last and you didn't have the money to get more?: Never true Within the past 12 months, did you worry whether your food would run out before you got money to buy more?: Never true Do you have trouble paying for medicines?: No Do you have trouble getting transportation to medical appointments?: No Do you have trouble paying your heating and electricity bill?: No Do you have trouble taking care of your child, family member or friend?: No Do you have trouble with day-to-day activities such as bathing, preparing meals, shopping, managing finances, etc.?: No Are you currently unemployed and looking for a job?: No Are you interested in more education?: No Please select the resources that you would like help with: None Currently or been in a relationship where the following occur: No concerns reported THRIVE Score: 0 SAPPHIRE-7 AMB Questionnaire SAPPHIRE-7 Date SAPPHIRE - 7 assessed: 09/29/24 Feeling nervous, anxious, or on edge: 0 = Not at all Not being able to stop or control worryin = Not at all Worrying too much about different things: 0 = Not at all Trouble relaxin = Not at all Being so restless that it is hard to sit still: 0 = Not at all Becoming easily annoyed or irritable: 0 = Not at all Feeling afraid as if something awful might happen: 0 = Not at all Total SAPPHIRE-7 score (0-4 normal; 5-9 mild; 10-14 moderate; 15-21 severe): 0 Source: Developed by Drs. Nilson Burdick, Brianna Long, Mickey Cee and colleagues, with an educational seth from [employer]. Review of Systems Const All systems reviewed & are unremarkable except as noted in HPI and below ENT Reports no additional complaints Card Reports no additional complaints Resp Reports no additional complaints GI Reports no additional complaints Reports no additional complaints Physical exam (Primary Care) Vital Signs: Last Vital Signs Temp 98.2 F 06/07/25 11:40 Pulse 63 06/07/25 11:40 Resp 18 06/07/25 11:40 BP 126/64 06/07/25 11:40 Pulse Ox 99 06/07/25 11:40 Oxygen Delivery Method Room Air 06/07/25 11:40 BMI result Body Mass Index 24.1 Tobacco/Smoking Status: Tobacco use Status Tobacco use date assessed 06/07/25 06/07/25 11:42 Patient Tobacco Use Status Never used Tobacco 06/07/25 11:42 e-Cigarette/Vaping Use Never Used 06/07/25 11:42 PHQ-9: PHQ-9 Score PHQ-9: Total score 0 06/07/25 11:57 Depression Screening Interpretation: Negative Thrive Assessment: Date of Thrive Assessment Date Thrive assessed 12/31/24 06/07/25 11:42 Currently or been in a relationship where the following occur: No concerns reported Const General: no acute distress HENMT Head: Yes normal to inspection Face and sinus: Yes normal facial exam Throat: Yes posterior oropharynx normal Eyes General: appearance normal, both eyes and all related structures Neck Neck: Yes no lymphadenopathy and Yes supple Resp Effort & Inspection: normal respiratory effort Auscultation: clear to auscultation bilaterally Cardio Rhythm: regular rhythm Heart sounds: S1 normal heart sound present and S2 normal heart sound present GI Inspection: Yes normal to inspection Palpation (GI): Soft to palpation Percussion: Yes normal to percussion Auscultation: normal bowel sounds Coding Level of Care Code Est Pt Level 4 (17105) Diagnoses Depression with anxiety F41.8 HTN (hypertension) I10 Hyperlipidemia E78.5 Postmenopausal Z78.0 Assessment & Plan Assessment & Plan (1) Depression with anxiety: Code(s): F41.8 - Other specified anxiety disorders Category: Medical Plan: cont Cymbalta (2) HTN (hypertension): Code(s): I10 - Essential (primary) hypertension Category: Medical Plan: Continue current medications (3) Hyperlipidemia: Comment: intolerant to Pravastatin, Crestor, body aches Code(s): E78.5 - Hyperlipidemia, unspecified Category: Medical Plan: Continue low-cholesterol diet regular exercise check lipid profile (4) Postmenopausal: Comment: DEXA 06/2023 osteopenia, compression fracture of L3 vertebral body on XR 03/2025, incidental finding, no pain or trauma Code(s): Z78.0 - Asymptomatic menopausal state Category: Medical Plan: Check DEXA, continue vitamin-D supplement and weight-bearing exercises Orders: Orders XR DEXA axial skeleton Today Z78.0 - Asymptomatic menopausal state Complete Blood Count Auto Diff 4 Months E55.9 - Vitamin D deficiency, unspecified, E78.5 - Hyperlipidemia, unspecified, I10 - Essential (primary) hypertension Lipid Panel 4 Months E55.9 - Vitamin D deficiency, unspecified, E78.5 - Hyperlipidemia, unspecified, I10 - Essential (primary) hypertension Vitamin D 25-OH Total 4 Months E55.9 - Vitamin D deficiency, unspecified, E78.5 - Hyperlipidemia, unspecified, I10 - Essential (primary) hypertension Comprehensive [place]. Panel Fast 4 Months E55.9 - Vitamin D deficiency, unspecified, E78.5 - Hyperlipidemia, unspecified, I10 - Essential (primary) hypertension
[2025-06-07 11:40] VITALS: BP 126/64; PULSE 63; RESP 18; TEMP 36.8; O2SAT 99; BMI 24.1
== END 2025-06-07 12:31 | disposition home or self-care (01) ==
LOC: HO.HMCC 11:34
PROVIDERS: PCP Internal Medicine; Visit Provider Internal Medicine
DX: F41.8 Other specified anxiety disorders (principal); I10 Essential (primary) hypertension; E78.5 Hyperlipidemia, unspecified; Z78.0 Asymptomatic menopausal state

== ENCOUNTER → 2025-06-07 11:34 | Outpatient (BNVA) | payer MEDICARE, SELFPAY | PROVIDERS: PCP Internal Medicine; Visit Provider Internal Medicine | DX: I10 Essential (primary) hypertension (principal); M54.2 Cervicalgia; F41.8 Other specified anxiety disorders; E78.5 Hyperlipidemia, unspecified; E55.9 Vitamin D deficiency, unspecified; Z78.0 Asymptomatic menopausal state; Z79.899 Other long term (current) drug therapy | CPT/HCPCS: 96127; 99212 ==